=== PATIENT | male | born 1980 | race Caucasian/White ===

== ENCOUNTER 2023-08-03 03:54 | Emergency (ER) | payer MEDICAID, SELFPAY ==
[2023-08-03 04:00] VITALS: BP 161/88; PULSE 80; RESP 18; TEMP 36.3; O2SAT 97; BMI 25.0
--- NOTE | 2023-08-03 04:36 | ED.GENADULT ---
HPI - General Adult General Chief complaint: General Medical Stated complaint: nerve pain in mouth, can't eat Time Seen by Provider: 08/03/23 04:21 Source: patient and family Mode of arrival: ambulatory Limitations: no limitations History of Present Illness HPI narrative: 43 yo male with PMH of trigeminal neuralgia follows with a neurologist who will have episodes of pain without trigger. He has been in a typical pain flare for 2 days no recent infection/dental work or trauma. He takes his lamictal. He has had this before. He cannot eat or talk even at this time. MD complaint: trigeminal neuralgia flare Onset (ago): day(s) (2) Location: head and face Radiation: non-radiation Severity: severe Quality: stabbing Pain Consistency: intermittent Relieving factors: none Exacerbating factors: eating and movement Associated symptoms: loss of appetite, malaise and weakness Treatments prior to arrival: NSAID Related Data Previous Rx's Medication Instructions Recorded morphine 15 mg immediate release 15 mg PO Q6H PRN pain #14 tabs 08/03/23 tablet ondansetron 4 mg disintegrating 4 mg PO Q8H PRN nausea and 08/03/23 tablet vomiting #20 tabs Allergies Allergy/AdvReac Type Severity Reaction Status Date / Time No Known Allergies Allergy Unverified 08/06/20 16:18 Review of Systems Review of Systems: Constitutional : No Fever, No Chills, No Fatigue ENT/Mouth : No sore throat, No Rhinorrhea Eyes: pos Eye Pain, No Swelling, No Redness Cardiovascular : No Chest Pain, No SOB, No Dyspnea on Exertion Respiratory : No Cough, No Sputum Gastrointestinal : No Nausea, No Vomiting, No Diarrhea, No abdominal Pain Genitourinary : No Dysuria, No Urinary Frequency, No Hematuria, Musculoskeletal : No joint pain, No Myalgias, No Joint Swelling Skin : No Skin Lesions, No rash Neuro : No Weakness, No Numbness, No Dizziness, positive Headache, pos facial pain Psych : No Anxiety/Panic, No Depression All other systems reviewed and are negative [facility] Past Medical History Attestation statement: The following information was validated with the patient. Source: old records reviewed Medical History Trigeminal neuralgia Social History Social History (Updated 08/03/23 @ 04:36 by Rachael Ovidio, DO) Patient Tobacco Use Status: Never used Tobacco Advance Directives: No Advance Directives Information Provided: No Physical Exam ED Vital Signs: Vital Signs - 24 hr 08/03/23 04:00 08/03/23 06:22 Temperature 97.4 F 97.9 F Pulse Rate 80 72 Respiratory Rate 18 14 Blood Pressure 161/88 H 126/77 Pulse Oximetry 97 95 Oxygen Delivery Method Room Air Room Air BMI result Body Mass Index 25.0 Appearance: Alert. Oriented X3. No acute distress. Eyes: Pupils equal, round and reactive to light. ENT: Pharynx tight and clenched, appears in pain. Neck: Normal inspection. Neck supple. CVS: Normal heart rate and rhythm. Pulses normal. Respiratory: No respiratory distress. Breath sounds normal. Abdomen: Soft and non-tender. Skin: Skin warm and dry. Normal skin color. Normal skin turgor. Extremities: No lower extremity edema. No calf ttp Neuro: Oriented X 3. No motor deficit. No sensory deficit. Course Course Course Narrative: improved after IV morphine and dilaudid Reevaluation(s) Reevaluation #1: patient is drastically improved plan will be to give additional dose of medications and DC home - is able to move jaw and talk now prior to DC was having more pain and episode with spasms but then told RN after he was 01/27 we have decided to hold the last dose and he is okay with this. Medications Administered Discontinued Medications Generic Name Dose Route Start Last Admin Trade Name Freq PRN Reason Stop Dose Admin Hydromorphone HCl 1 mg 08/03/23 05:24 08/03/23 05:41 Hydromorphone Hcl 1 Mg/Ml Syringe IVPUSH 08/03/23 05:25 1 mg ONCE ONE Administration Protocol Sodium Chloride 1,000 mls @ 999 mls/hr 08/03/23 04:30 08/03/23 04:53 Ns IV 08/03/23 05:30 999 mls/hr .Q1H1M KATIUSKA Administration Lorazepam 1 mg 08/03/23 04:25 08/03/23 04:51 Lorazepam 2 Mg/Ml Vial IVPUSH 08/03/23 04:26 1 mg STAT STA Administration Morphine Sulfate 2 mg 08/03/23 04:25 08/03/23 04:51 Morphine Sulfate 2 Mg/Ml Cartridge IVPUSH 09/14/23 04:26 2 mg ONCE ONE Administration Protocol Medical Decision Making Medical Decision Making [facility] Narrative: 43 yo male with PMH of trigeminal neuralgia here with sharp pain on L side of face cannot eat or chew - no trauma or trigger hx of same in past. At this time typical bout for him. Will need pain control and basic labs and fluids - IV morphine and ativan ordered. Differential Diagnosis Differential Diagnoses: The differential diagnosis associated with the presentation includes neuropathic pain Admission/Observation Consideration of admission/observation: Escalation of care including admission/observation considered improved after IV pain medicatinos anticipate able to go home once pain improved Lab Data [facility] Lab Attestation statement: I reviewed the patient's lab results. 08/03/23 04:48 08/03/23 04:48 Labs: Lab Results 08/03/23 Range/Units 04:48 WBC 7.5 (4.8-10.8) X10*3/uL RBC 6.23 H (4.60-5.80) X10*6/uL Hgb 16.1 (14.0-18.0) g/dl Hct 50.2 (42.0-52.0) % MCV 80.6 (80.0-98.0) fL MCH 25.8 L (27.0-33.0) pg MCHC 32.1 (31.0-36.0) g/dl RDW 15.1 (11.0-16.0) % Plt Count 312 (160-400) X10*3/uL MPV 9.1 L (9.4-12.4) fL Immature Gran % (Auto) 0.1 (0.0-0.4) % Neut % (Auto) 60.8 (45-73) % Lymph % (Auto) 28.5 (20-40) % [place] % (Auto) 8.6 (2-11) % Eos % (Auto) 1.5 (0-4) % Baso % (Auto) 0.5 (0-2) % Lymph # (Auto) 2.1 (1.2-4.9) X10*3/uL [place] # (Auto) 0.6 (0.1-1.2) X10*3/uL Eos # (Auto) 0.1 (0.0-0.4) X10*3/uL Baso # (Auto) 0.0 (0.0-0.2) X10*3/uL Abs Immat Gran (auto) 0.01 (0.00-0.03) X10*3/uL Absolute Neuts (auto) 4.5 (2.0-8.3) x10*3/uL Absolute Nucleated RBC 0.000 (0.0-0.012) X10*3/uL Nucleated RBC % (auto) 0.0 (0.0-0.2) /100WBC Sodium 141 (135-145) mmol/L Potassium 4.1 (3.3-5.1) mmol/L Chloride 103 (96-108) mmol/L Carbon Dioxide 25 (22-29) mmol/L Anion Gap 17 (12-20) BUN 12 (9-16) mg/dL Creatinine 1.07 (0.5-1.4) mg/dL Estim Creat Clear Calc 102.4 Estimated GFR > 60 Random Glucose 93 (60-115) mg/dL Calcium 10.4 H (8.4-10.2) mg/dL Independent Historian Clinical information obtained from an independent historian. History obtained from or confirmed by: Spouse Tests considered The following testing was considered but not selected: CT head but given typical pain doubt ICH Prescription Management I considered prescription management with: Pain Medication Critical Care Time Critical Care Time Critical Care Time: Yes Total Critical Care Time: 31 Attestation: repeat IV pain morphine/dilaudid, improvement in pain. I attest to this time spent taking care of the patient Discharge Plan Discharge Clinical Impression: Trigeminal neuralgia of left side of face Patient Disposition: Home, Self-Care Instructions: Trigeminal Neuralgia (ED) Additional Instructions: increase fluid intake. return for worsening symptoms, fevers, confusion, vomiting, severe pain or any other concerns. continue your medications. Prescriptions: New ondansetron 4 mg tablet,disintegrating 4 mg PO Q8H PRN (Reason: nausea and vomiting) Qty: 20 0RF morphine 15 mg tablet 15 mg PO Q6H PRN (Reason: pain) Qty: 14 0RF Rx Instructions: partial fill okay; Partial Fill upon patient request. Stand Alone Forms: Work/School Release
[2023-08-03 04:51] LABS: MANUAL DIFF FLAG NO
[2023-08-03] MEDS: Morphine Sulfate 2 MG/ML CARTRIDGE IVPUSH (04:51)
[2023-08-03] MEDS: LORazepam 2 MG/ML VIAL 1 MG IVPUSH (04:51)
[2023-08-03 04:52] LABS: Basophils Percent Auto 0.5 % (0-2); Eosinophils Absolute Auto 0.1 X10*3/uL (0.0-0.4); Eosinophils Percent Auto 1.5 % (0-4); Hematocrit 50.2 % (42.0-52.0); Hemoglobin 16.1 g/dl (14.0-18.0); Imm Gran Abs Auto 0.01 X10*3/uL (0.00-0.03); Imm Gran Pct Auto 0.1 % (0.0-0.4); Lymphocytes Absolute Auto 2.1 X10*3/uL (1.2-4.9); Lymphocytes Percent Auto 28.5 % (20-40); Mean Corpuscular HGB Conc 32.1 g/dl (31.0-36.0); Mean Corpuscular Hemoglobin 25.8 pg (27.0-33.0); Mean Corpuscular Volume 80.6 fL (80.0-98.0); Mean Platelet Volume 9.1 fL (9.4-12.4); Monocytes Absolute Auto 0.6 X10*3/uL (0.1-1.2); Monocytes Percent Auto 8.6 % (2-11); Neutrophils Absolute Auto 4.5 x10*3/uL (2.0-8.3); Neutrophils Percent Auto 60.8 % (45-73); Platelet Count 312 X10*3/uL (160-400); Red Blood Count 6.23 X10*6/uL (4.60-5.80); Red Cell Distribution Width 15.1 % (11.0-16.0); White Blood Count 7.5 X10*3/uL (4.8-10.8)
[2023-08-03] MEDS: 0.9 % Sodium Chloride 1,000 ML 999 ML IV (04:53)
[2023-08-03 05:11] LABS: Anion Gap 17 (12-20); Blood Urea Nitrogen 12 mg/dL (9-16); Calcium 10.4 mg/dL (8.4-10.2); Carbon Dioxide 25 mmol/L (22-29); Chloride 103 mmol/L (96-108); Creatinine Clr Calc Pharmacy 102.4; Estimated Glomerular Filt Rate > 60; Glucose Random 93 mg/dL (60-115); Potassium 4.1 mmol/L (3.3-5.1); Sodium 141 mmol/L (135-145)
[2023-08-03] MEDS: HYDROmorphone HCl 1 MG/ML SYRINGE IVPUSH (05:41)
--- NOTE | 2023-08-03 06:18 | PC.NURSE ---
Pulled pain medication per order and gave to TATIANA Delarosa for administration.
[2023-08-03 06:22] VITALS: BP 126/77; PULSE 72; RESP 14; TEMP 36.6; O2SAT 95
--- NOTE | 2023-08-03 06:23 | PC.NURSE ---
Medication return by this charge nurse and RN [place], Provider aware.
== END 2023-08-03 06:41 | disposition home or self-care (01) ==
PROVIDERS: Emergency Provider Emergency Medicine
DX: G50.0 Trigeminal neuralgia (principal)
CPT/HCPCS: 36415; 80048; 85025; 96374; 96375; 99284; J1170; J2060; J2270

== ENCOUNTER 2024-11-08 09:14 | Emergency (ER) | payer MEDICAID, SELFPAY ==
[2024-11-08] VITALS (7 sets, daily range): BP systolic 129–148; BP diastolic 81–100; PULSE 70–78; RESP 15–20; TEMP 35.9–36.6; O2SAT 95–99; BMI 28.2
[2024-11-08 10:21] LABS: MANUAL DIFF FLAG NO
[2024-11-08 10:29] LABS: Basophils Percent Auto 0.6 % (0-2); Eosinophils Absolute Auto 0.1 X10*3/uL (0.0-0.4); Eosinophils Percent Auto 1.5 % (0-4); Hematocrit 46.5 % (42.0-52.0); Hemoglobin 15.2 g/dl (14.0-18.0); Imm Gran Abs Auto 0.02 X10*3/uL (0.00-0.03); Imm Gran Pct Auto 0.3 % (0.0-0.4); Lymphocytes Absolute Auto 2.2 X10*3/uL (1.2-4.9); Lymphocytes Percent Auto 33.7 % (20-40); Mean Corpuscular HGB Conc 32.7 g/dl (31.0-36.0); Mean Corpuscular Hemoglobin 26.2 pg (27.0-33.0); Mean Platelet Volume 9.3 fL (9.4-12.4); Monocytes Absolute Auto 0.5 X10*3/uL (0.1-1.2); Neutrophils Absolute Auto 3.8 x10*3/uL (2.0-8.3); Neutrophils Percent Auto 56.9 % (45-73); Platelet Count 299 X10*3/uL (160-400); Red Blood Count 5.81 X10*6/uL (4.60-5.80); Red Cell Distribution Width 14.5 % (11.0-16.0); White Blood Count 6.6 X10*3/uL (4.8-10.8)
[2024-11-08 10:39] LABS: Alanine Aminotransferase 43 U/L (0-40); Albumin Level 4.5 g/dL (3.5-5.0); Alkaline Phosphatase 112 U/L (39-117); Anion Gap 13 (12-20); Aspartate Amino Transferase 29 U/L (5-37); Bilirubin Total 0.6 mg/dL (0.0-1.0); Blood Urea Nitrogen 14 mg/dL (9-16); Calcium 9.7 mg/dL (8.4-10.2); Carbon Dioxide 25 mmol/L (22-29); Chloride 108 mmol/L (96-108); Creatinine Clr Calc Pharmacy 98.9; Estimated Glomerular Filt Rate > 60; Glucose Random 97 mg/dL (60-115); Potassium 3.9 mmol/L (3.3-5.1); Sodium 142 mmol/L (135-145); Total Protein 7.1 g/dL (6.5-8.0)
--- NOTE | 2024-11-08 10:49 | ED.GENADULT ---
HPI - General Adult General Chief complaint: General Medical Stated complaint: flare up Time Seen by Provider: 11/08/24 10:31 Source: patient Mode of arrival: ambulatory Limitations: no limitations Related Data Previous Rx's ?Medication ?Instructions ?Recorded morphine 15 mg immediate release 15 mg PO Q6H PRN pain #14 tabs 08/03/23 tablet ondansetron 4 mg disintegrating 4 mg PO Q8H PRN nausea and 08/03/23 tablet vomiting #20 tabs hydromorphone 2 mg tablet 2 mg PO Q6H PRN pain #10 tabs 11/08/24 (Dilaudid) Allergies Allergy/AdvReac Type Severity Reaction Status Date / Time No Known Allergies Allergy Verified 11/08/24 09:21 Review of Systems Review of Systems: Yes all other systems are reviewed and are negative PMFSH Past Medical History Attestation statement: The following information was validated with the patient. Source: old records reviewed and nursing notes reviewed Medical History Trigeminal neuralgia Social History Social History Patient Tobacco Use Status: Never used Tobacco Smoked in Last 30 Days: Yes Advance Directives: No Advance Directives Information Provided: Yes Physical Exam ED Vital Signs: Vital Signs - 24 hr 11/08/24 09:19 11/08/24 11:04 11/08/24 12:36 Temperature 96.7 F L Pulse Rate 70 Respiratory Rate 20 18 16 Blood Pressure 148/100 H Pulse Oximetry 99 Oxygen Delivery Method Room Air 11/08/24 12:37 11/08/24 13:58 Temperature 97.5 F Pulse Rate 72 Respiratory Rate 16 18 Blood Pressure 129/81 Pulse Oximetry 97 Oxygen Delivery Method Room Air BMI result Body Mass Index 28.2 vss Appearance: Alert.? Oriented X3.? No acute distress.? Head: Normocephalic, atraumatic, no step-offs or deformities Eyes: Pupils equal, round and reactive to light.? CVS: Normal heart rate and rhythm.? Pulses normal.? Respiratory: No respiratory distress.? Breath sounds normal.? Abdomen: Soft and nontender.? Skin: Skin warm and dry.? Normal skin color.? Normal skin turgor.? Extremities: No lower extremity edema.? No calf ttp. 5/5 strength to bilateral upper and lower extremities Neuro: Oriented X 3.? No motor deficit.? No sensory deficit. CN 2-12 intact Course Reevaluation(s) Reevaluation #1: CBC unremarkable. Chemistry no acute findings needing intervention. After multiple doses of morphine and Dilaudid patient is still having discomfort. I did repeat another dose of Dilaudid. He reports Valium usually works, ordered IV Valium will re-evaluate Time: 14:55 Reevaluation #2: Patient is still in excruciating pain I did order 2.5 of Valium initially will order another 2.5 at this time. Time: 15:39 Reevaluation #3: Patient is still not feeling better. Sign out to Al CABRAL pending symptomatic improvement. May require more opiates. Time: 16:08 Medications Administered Discontinued Medications Generic Name Dose Route Start Last Admin Trade Name Freq PRN Reason Stop Dose Admin Dexamethasone Sodium Phosphate 10 mg 11/08/24 11:01 11/08/24 11:06 Dexamethasone Sod Phosphate 10 Mg/Ml Vial IVPUSH 11/08/24 11:02 10 mg ONCE ONE Administration Diazepam 2.5 mg 11/08/24 14:12 11/08/24 14:26 Diazepam 10 Mg/2 Ml Cartridge IVPUSH 11/08/24 14:13 2.5 mg STAT STA Administration Diazepam 2.5 mg 11/08/24 15:39 11/08/24 15:57 Diazepam 10 Mg/2 Ml Cartridge IVPUSH 11/08/24 15:40 2.5 mg STAT STA Administration Hydromorphone HCl 1 mg 11/08/24 12:28 11/08/24 12:36 Hydromorphone Hcl 1 Mg/Ml Syringe IVPUSH 11/08/24 12:29 1 mg ONCE ONE Administration Protocol Hydromorphone HCl 1 mg 11/08/24 13:51 11/08/24 13:58 Hydromorphone Hcl 1 Mg/Ml Syringe IVPUSH 11/08/24 13:52 1 mg ONCE ONE Administration Protocol Lorazepam 1 mg 11/08/24 10:54 11/08/24 11:05 Lorazepam 2 Mg/Ml Vial IVPUSH 11/08/24 10:55 1 mg STAT STA Administration Morphine Sulfate 4 mg 11/08/24 10:54 11/08/24 11:04 Morphine Sulfate 4 Mg/Ml Cartridge IVPUSH 11/08/24 10:55 4 mg ONCE ONE Administration Protocol Naloxone HCl 8 mg 11/08/24 14:10 11/08/24 14:26 Naloxone Hcl Nasal Take Home 4 Mg [place] NOSTRILALT 11/08/24 14:11 8 mg ONCE ONE Administration Medical Decision Making Medical Decision Making [facility] Narrative: 1058 44 year old male PE- patient appears uncomfortable Hx and pe concerning for trigeminal neuralgia flare, Plan- Lab Data 11/08/24 10:17 11/08/24 10:17 Labs: Lab Results 11/08/24 Range/Units 10:17 WBC 6.6 (4.8-10.8) X10*3/uL RBC 5.81 H (4.60-5.80) X10*6/uL Hgb 15.2 (14.0-18.0) g/dl Hct 46.5 (42.0-52.0) % MCV 80.0 (80.0-98.0) fL MCH 26.2 L (27.0-33.0) pg MCHC 32.7 (31.0-36.0) g/dl RDW 14.5 (11.0-16.0) % Plt Count 299 (160-400) X10*3/uL MPV 9.3 L (9.4-12.4) fL Immature Gran % (Auto) 0.3 (0.0-0.4) % Neut % (Auto) 56.9 (45-73) % Lymph % (Auto) 33.7 (20-40) % [place] % (Auto) 7.0 (2-11) % Eos % (Auto) 1.5 (0-4) % Baso % (Auto) 0.6 (0-2) % Lymph # (Auto) 2.2 (1.2-4.9) X10*3/uL [place] # (Auto) 0.5 (0.1-1.2) X10*3/uL Eos # (Auto) 0.1 (0.0-0.4) X10*3/uL Baso # (Auto) 0.0 (0.0-0.2) X10*3/uL Abs Immat Gran (auto) 0.02 (0.00-0.03) X10*3/uL Absolute Neuts (auto) 3.8 (2.0-8.3) x10*3/uL Absolute Nucleated RBC 0.000 (0.0-0.012) X10*3/uL Nucleated RBC % (auto) 0.0 (0.0-0.2) /100WBC Sodium 142 (135-145) mmol/L Potassium 3.9 (3.3-5.1) mmol/L Chloride 108 (96-108) mmol/L Carbon Dioxide 25 (22-29) mmol/L Anion Gap 13 (12-20) BUN 14 (9-16) mg/dL Creatinine 1.19 (0.5-1.4) mg/dL Estim Creat Clear Calc 98.9 Estimated GFR > 60 Random Glucose 97 (60-115) mg/dL Calcium 9.7 D (8.4-10.2) mg/dL Total Bilirubin 0.6 (0.0-1.0) mg/dL AST 29 (5-37) U/L ALT 43 H (0-40) U/L Alkaline Phosphatase 112 (39-117) U/L Total Protein 7.1 (6.5-8.0) g/dL Albumin 4.5 (3.5-5.0) g/dL Critical Care Time Critical Care Time Critical Care Time: Yes Total Critical Care Time: 35 Attestation: I attest to this time spent taking care of the patient, obtaining history, physical, reviewing labs, imaging, treatment of patients condition +/- specialist/hospitalist consult Discharge Plan Discharge Clinical Impression: Trigeminal neuralgia Patient Disposition: Home, Self-Care Instructions: Trigeminal Neuralgia (ED), Paresthesia (ED) Additional Instructions: Take your medications as prescribed. If you were prescribed antibiotics today, it is important that you take your medication to their entirety, do not skip any doses, do not finish them early. Follow-up with your primary care provider this week. Return to the emergency department with new or worsening symptoms. Such as fevers, chills, chest pain, shortness of breath, nausea, vomiting, dizziness, headache, vision changes, lethargy In case of emergency call 911 A narcotic has been sent to your pharmacy please take this as prescribed. Do not take more than the prescribed dose. Narcotic medications can cause addiction. Please do not mix them with alcohol. Do not take them while driving or operating machinery. Do not take them with any other narcotics. Do not share them with friends or family. They can cause constipation. Take them only for severe pain. A narcotic was sent therefore I also gave you Narcan for home in case of an overdose. Please follow-up with your PCP. Prescriptions: New hydromorphone [Dilaudid] 2 mg tablet 2 mg PO Q6H PRN (Reason: pain) Qty: 10 0RF Rx Instructions: Partial Fill upon patient request. No Action ondansetron 4 mg tablet,disintegrating 4 mg PO Q8H PRN (Reason: nausea and vomiting) Qty: 20 0RF morphine 15 mg tablet 15 mg PO Q6H PRN (Reason: pain) Qty: 14 0RF Rx Instructions: partial fill okay; Partial Fill upon patient request. Referrals: [facility] [Primary Care Provider] - 2 days Print Language: Occitan
[2024-11-08] MEDS: Morphine Sulfate 4 MG/ML CARTRIDGE IVPUSH (11:04)
[2024-11-08] MEDS: LORazepam 2 MG/ML VIAL 1 MG IVPUSH (11:05)
[2024-11-08] MEDS: dexAMETHasone sod phosphate 10 MG/ML VIAL IVPUSH (11:06)
[2024-11-08] MEDS: HYDROmorphone HCl 1 MG/ML SYRINGE IVPUSH ×2 (12:36→13:58)
[2024-11-08] MEDS: diazePAM 10 MG/2 ML CARTRIDGE 2.5 MG IVPUSH ×2 (14:26→15:57)
[2024-11-08] MEDS: Naloxone HCl Nasal TAKE HOME 4 MG SPRAY 8 MG NOSTRILALT (14:26)
[2024-11-08] MEDS: 0.9 % Sodium Chloride 500 ML IV (16:33)
== END 2024-11-08 18:48 | disposition home or self-care (01) ==
PROVIDERS: Emergency Provider Emergency Medicine Emergency Medical Services
DX: G50.0 Trigeminal neuralgia (principal)
CPT/HCPCS: 36415; 80053; 85025; 96361; 96374; 96375; 96376; 99284; J1100; J1171; J2060; J2270; J3360

== ENCOUNTER 2025-01-19 05:29 | Emergency (ER) | payer MEDICAID, SELFPAY ==
[2025-01-19 05:34] VITALS: BP 144/87; PULSE 83; RESP 16; TEMP 37.1; O2SAT 98; BMI 27.0
--- NOTE | 2025-01-19 05:56 | ED_ITS ---
HPI - General Adult General Chief complaint: General Medical Stated complaint: pain left side of face Time Seen by Provider: 01/19/25 05:56 History of Present Illness ED Provider: Gisela NDIAYE narrative: The patient is a 44-year-old male with a history of trigeminal neuralgia. He says that he normally takes lamotrigine to manage this chronic syndrome. Since last night at around 01:00 he has had pain that he can not bear and came to the hospital. The pain is similar to previous episodes of exacerbation of this pain. No associated fever or other symptoms. Related Data Previous Rx's ?Medication ?Instructions ?Recorded morphine 15 mg immediate release 15 mg PO Q6H PRN pain #14 tabs 08/03/23 tablet ondansetron 4 mg disintegrating 4 mg PO Q8H PRN nausea and 08/03/23 tablet vomiting #20 tabs hydromorphone 2 mg tablet 2 mg PO Q6H PRN pain #10 tabs 11/08/24 (Dilaudid) Allergies Allergy/AdvReac Type Severity Reaction Status Date / Time No Known Allergies Allergy Verified 01/19/25 05:36 [facility] Past Medical History Medical History Trigeminal neuralgia Social History Social History Patient Tobacco Use Status: Never used Tobacco Smoked in Last 30 Days: No Advance Directives: No Do you have a plan to hurt others: No Plan Physical Exam ED Vital Signs: Vital Signs - 24 hr 01/19/25 05:34 01/19/25 06:02 01/19/25 09:06 Temperature 98.7 F 98 F 98 F Pulse Rate 83 78 78 Respiratory Rate 16 18 18 Blood Pressure 144/87 H 148/84 H 133/78 Pulse Oximetry 98 97 98 Oxygen Delivery Method Room Air 01/19/25 09:07 Temperature 98 F Pulse Rate 78 Respiratory Rate 18 Blood Pressure 133/78 Pulse Oximetry 98 Oxygen Delivery Method BMI result Body Mass Index 27.0 Const Other: the patient was sleepy but arousable. He did not seem in obvious distress. HENMT Other: Face is symmetrical. Mucous membranes moist. Eyes Other: Pupils are round equal, conjunctivae are clear Neck Neck: Yes full ROM Resp Effort & Inspection: normal respiratory effort Auscultation: clear to auscultation bilaterally Cardio Rate: regular rate Rhythm: regular rhythm Heart sounds: S1 normal heart sound present and S2 normal heart sound present Skin Other: skin is dry and unremarkable Neuro Other: the patient seems sleepy but arousable with a normal mental status. Cranial nerves are grossly intact. He moves his extremities symmetrically. Extrem Other: No peripheral edema Medications Administered Discontinued Medications Generic Name Dose Route Start Last Admin Trade Name Ricky PRN Reason Stop Dose Admin Dexamethasone Sodium Phosphate 8 mg 01/19/25 08:08 01/19/25 08:57 Dexamethasone Sod Phosphate 4 Mg/Ml Vial IVPUSH 01/19/25 08:09 8 mg ONCE ONE Administration Diphenhydramine HCl 50 mg 01/19/25 06:03 01/19/25 06:17 Diphenhydramine Hcl 50 Mg/Ml Vial IVPUSH 01/19/25 06:04 50 mg ONCE ONE Administration Acetaminophen 1,000 mg in 100 mls @ 400 mls/hr 01/19/25 06:03 01/19/25 06:43 Ofirmev IV 01/19/25 06:17 Infused ONCE ONE Infusion Sodium Chloride 1,000 mls @ 999 mls/hr 01/19/25 06:15 01/19/25 06:17 Ns IV 01/19/25 07:15 999 mls/hr .Q1H1M KATIUSKA Administration Ketorolac Tromethamine 10 mg 01/19/25 06:03 01/19/25 06:17 Ketorolac Tromethamine 15 Mg/Ml Vial IVPUSH 01/19/25 06:04 10 mg ONCE ONE Administration Prochlorperazine Edisylate 10 mg 01/19/25 06:03 01/19/25 06:17 Prochlorperazine Edisylate 10 Mg/2 Ml Vial IVPUSH 01/19/25 06:04 10 mg ONCE ONE Administration Medical Decision Making Medical Decision Making [facility] Narrative: The patient is a 44-year-old male who seems to have a long history of the painful syndrome related to trigeminal neuralgia. He is normally on lamotrigine because of this problem. He seems to have occasional flares of worsening pain. He was last seen here 2-1/2 months ago on November 08, 2024 with a an exacerbation of pain. Before that he has been seen here in July of 2023. The patient says that the pain he is experiencing today is similar to his previous exacerbations. The patient is hemodynamically stable and does not seem acutely ill otherwise. He was given IV ketorolac, IV acetaminophen, IV prochlorperazine, and IV diphenhydramine as well as IV fluids. He was observed. He had significant improvement in his pain. He was given 8 mg of IV dexamethasone as well. At that point he felt well enough for discharge. He is encouraged to follow up with his regular providers for ongoing management of this problem. Discharge Plan Discharge Clinical Impression: Left-sided trigeminal neuralgia Patient Disposition: Home, Self-Care Additional Instructions: Please continue your regular medications. Please plan on following up with your regular doctor and any specialists you have seen for this problem before. Return to the emergency room if significantly worse. Prescriptions: No Action hydromorphone [Dilaudid] 2 mg tablet 2 mg PO Q6H PRN (Reason: pain) Qty: 10 0RF Rx Instructions: Partial Fill upon patient request. ondansetron 4 mg tablet,disintegrating 4 mg PO Q8H PRN (Reason: nausea and vomiting) Qty: 20 0RF morphine 15 mg tablet 15 mg PO Q6H PRN (Reason: pain) Qty: 14 0RF Rx Instructions: partial fill okay; Partial Fill upon patient request. Referrals: [facility] [Provider Group] (trigeminal neuralgia) Interventions: ED Discharge Assessment Last Done: 01/19/25 09:07 Discharge Date/Time: 01/19/25 09:08 Print Language: Greek
[2025-01-19 06:02] VITALS: BP 148/84; PULSE 78; RESP 18; TEMP 36.6; O2SAT 97
[2025-01-19] MEDS: diphenhydrAMINE HCL 50 MG/ML VIAL IVPUSH (06:17)
[2025-01-19] MEDS: Ketorolac Tromethamine 15 MG/ML VIAL 10 MG IVPUSH (06:17)
[2025-01-19] MEDS: 0.9 % Sodium Chloride 1,000 ML 999 ML IV (06:17)
[2025-01-19] MEDS: Prochlorperazine Edisylate 10 MG/2 ML VIAL IVPUSH (06:17)
[2025-01-19] MEDS: Acetaminophen 1,000 MG/100 ML PIGGYBACK 400 MG IV (06:27)
[2025-01-19] MEDS: dexAMETHasone sod phosphate 4 MG/ML VIAL 8 MG IVPUSH (08:57)
[2025-01-19 09:06] VITALS: BP 133/78; PULSE 78; RESP 18; TEMP 36.6; O2SAT 98
[2025-01-19 09:07] VITALS: BP 133/78; PULSE 78; RESP 18; TEMP 36.6; O2SAT 98
== END 2025-01-19 09:08 | disposition home or self-care (01) ==
PROVIDERS: Emergency Provider Emergency Medicine
DX: G50.0 Trigeminal neuralgia (principal); R51.9 Headache, unspecified; Z79.899 Other long term (current) drug therapy
CPT/HCPCS: 96365; 96375; 99284; J0131; J0737; J1100; J1200; J1885

== ENCOUNTER 2025-01-21 21:28 | Emergency (ER) | payer MEDICAID, SELFPAY ==
[2025-01-21 21:38] VITALS: BP 155/88; PULSE 80; RESP 18; TEMP 36.8; O2SAT 98; BMI 25.7
--- OUTSIDE RECORDS SUMMARY | 2025-01-21 23:11 | XMS_ITS | Clinical Summary ---
Author Organization [employer] Address [address] [facility] 7t [place] [address] Care Team Providers Care Greens Tier Name Role Phone Whitney Hancock MD Primary Care Provider [phone] Allergies No known active allergies Medications lamoTRIgine (LaMICtal) 100 MG tablet TAKE 1 TABLET BY MOUTH IN THE MORNING, TAKE 1 TAB IN THE EVENING, 2 TABS IN THE EVENING 05/02/2023 Active amitriptyline (Elavil) 25 MG tablet Take 25 mg by mouth at bedtime. 07/19/2022 Active lamoTRIgine (LaMICtal) 200 MG tablet Take 1 tablet by mouth 3 times daily. 05/02/2023 Active naproxen (Naprosyn) 500 MG tablet TAKE 1 TABLET BY MOUTH TWICE A DAY WITH FOOD NEEDED 60 tablet 09/26/2023 Active oseltamivir (Tamiflu) 75 MG capsuleIndicati ons:Influenza A Infection Take 1 capsule (75 mg) by mouth 2 times daily for 5 days. 10 capsule 12/17/2024 12/22/19 25 Active Problems Problem Noted Date Diagnosed Date Influenza A 12/17/2024 Assessment & Plan (12/17/2024 3:23 PM EST): -girlfriend rapid influenza A positive -prescribed Tamiflu -droplet precautions discussed -supportive care discussed Chronic maxillary sinusitis 05/25/2023 Overview (05/25/2023): MRI 06/03/22 showed left severe maxillary sinusitis. Continued sx Never treated Assessment & Plan (07/31/2023 2:44 PM EDT): Completed antibiotic treatment ENT appt 08/16/23 F/u PRN Assessment & Plan (05/25/2023 10:49 PM EDT): Contacted ENT and scheduled appt Jul 2023 and added to cancellation list Will treat sinusitis from last year d/t continued sx and never receiving any treatment. Rx Augmentin BID x 7 days F/u 1-2 months with new PCP Obstructive sleep apnea syndrome 10/21/2021 Overview (05/25/2023): CPAP machine is not working. Sent for repairs but needs new Rx b/c insurance doesn't pain for repairs 05/01/2019 CONCLUSION: Successful treatment with application of CPAP and optimal results obtained with a pressure of 12 to 13 cm. The patient tolerated the treatment well. RECOMMENDATIONS: Nasal pillows of medium size pressure of 12 cm is recommended. Heated humidification could be used for the patient's comfort. Continue sleep hygiene education. Continue weight reduction program. Assessment & Plan (07/31/2023 2:57 PM EDT): Received DME Rx for CPAP with pressure 12-13cm will contact CPAP supplier next week if machine still has not been returned with upgraded settings F/u PRN with new PCP Assessment & Plan (05/25/2023 10:46 PM EDT): Will write new DME Rx for CPAP with pressure 12-13cm F/u PRN with new PCP Anxiety 09/22/2021 Gastroesophageal reflux disease 09/22/2021 Trigeminal neuralgia 01/26/2016 Overview (08/23/2023): Episodes comes and goes. Aggravated by weather, water intake, brushing teeth. Last episode 2 days ago, lasted 1/2 day. Usually duration 1/2 day-1 day. Last neurology appt 8 months ago 09/22/22. F/u 4-6 mo ago Neurosurgery 07/28/22, MRI 06/03/22 showed left severe maxillary sinusitis. Referred to ENT, missed appt. Reports assoc watery nasal discharge often, pain dental, Facial tenderness and foul smell in nose Denies Dizziness Treating Lamictal 100mg + 200mg tablets TID Not eating d/t facial pain Assessment & Plan (07/31/2023 2:58 PM EDT): Recommended proper dental care ENT scheduled 08/16/23, encouraged them to keep appt for f/u on sinusitis. Also b/c sinuses feel the same as they did in May, per the pt DTA form pending Continue Lamictal Rx by Neurology Will check with DME team on Boost drink Rx F/u PRN with new PCP Assessment & Plan (05/25/2023 10:43 PM EDT): Plan: Address if dental infection, [facility] Unable to eat d/t sensitivity of left side of mouth, tenderness r/t TN? Will Rx Boost drinks Contacted ENT and scheduled appt Jul 2023 and added to cancellation list Will treat sinusitis from last year d/t continued sx and never receiving any treatment. F/u 1-2 months with new PCP Encounters Date Type Department Care Team Description 12/17/2024 3:40 PM EST Office Visit [facility] [address] [place] [phone] Lyndsey Fong MD Influenza A (Primary Dx) 11/15/2024 Telephone [facility] [address] [place], [place] [phone] Whitney Hancock MD Nurse Triage 11/08/2024 Orders Only GENERIC EXTERNAL DATA DEPARTMENT Provider, Generic External Data from Last 3 Months Immunizations Name Administration Dates Next Due Hep A, Adult 06/05/2015 Influenza Injectable Quadriv alant Preservative Free IIV4 MDCK 09/01/2017 Td (adult), 5 Lf tetanus tox oid, preservative free, adsorbed 12/15/2013 Tdap 02/02/2022 Social History Tobacco Use Types Packs/Day Years Used Date Smoking Tobacco: Unknown Tobacco Cessation:Counseling Given: Not Answered Sex and Gender Information Value Date Recorded Sex Assigned at Male 09/19/2022 10:29 AM EDT Legal Sex Male 10:29 AM EDT Gender Identity Male 09/19/2022 10:29 AM EDT Sexual Orientation Straight 09/19/2022 10 :29 AM EDT Last Filed Vital Signs Vital Sign Reading Time Taken Comments Blood Pressure 121/88 12/17/2024 3:30 PM EST Pulse 100 12/17/2024 3:30 PM EST Temperature 36.3 ??C (97.3 ??F) 12/17/2024 3:30 PM ES T Respiratory Rate 20 12/17/2024 3:30 PM EST Oxygen Saturation 98% 12/17/2024 3:30 PM EST Inhaled Oxygen Concentration - - Weight 95.4 kg (210 lb 6.4 oz) 12/17/2024 3:30 P M EST Height 188 cm (6' 2 ) 12/17/2024 3:30 PM EST Body Mass Index 27.01 12/17/2024 3:30 PM EST Plan of Treatment Health Maintenance Due Date Last Done Comments CT Colonography 1979 Colonoscopy 1979 Colorectal Cancer Screening 1979 Depression Screening 1979 FIT DNA/Cologuard 1979 FIT 1979 FOBT 1979 SDOH Screening 1979 Sigmoidoscopy 1979 Alcohol/Substance Use Screening 1991 Family Planning (PISQ) 1994 Hepatitis B Vaccines (1 of 3 - 19+ 3-dose series) 1998 COVID-19 Vaccine (2023-2 5 season) 2024 04/05/2021, 03/11/2021 Influenza Vaccine (#1) 2024 09/01/2017 Tobacco Screening 07/31/2024 07/31/2023 Lipid Panel 02/02/2027 02/02/2022 Zoster Vaccines (1 of 2) 2029 DTaP/Tdap/Td Vaccines (2 - T d or Tdap) 02/03/2032 02/02/2022, 12/15/2013 RSV Patients and Patients Aged 60 years or older (1 - 1-dose 75+ series) 2054 Hepatitis A Vaccines Aged Out 06/05/2015 No long er eligible based on patient's age to complete this topic HIV Screening Completed 02/02/2022 Hepatitis C Screening Completed 02/02/2022 HIB Vaccines Aged Out No longer eligi ble based on patient's age to complete this topic HPV Vaccines Aged Out No longer eligi ble based on patient's age to complete this topic IPV Vaccines Aged Out No longer eligi ble based on patient's age to complete this topic Meningococcal Vaccine Aged Out No neel gokul eligible based on patient's age to complete this topic Pneumococcal Vaccine: Pediatrics (0 to 5 Years) and At-Risk Patients (6 to 49) Years) Aged Out No longer eligible b ased on patient's age to complete this topic RSV under 20 months Aged Out No longe r eligible based on patient's age to complete this topic Rotavirus Vaccines Aged Out No longer eligible based on patient's age to complete this topic Procedures Procedure Name Priority Date/Time Associated Diagnosis Comments POCT INFLUENZA B (ID NOW RAPID MOLECULAR) Routine 12/17/2024 3:40 PM EST Influenza A POCT INFLUENZA A (ID NOW RAPID MOLECULAR) Routine 12/17/2024 3:40 PM EST Influenza A POCT RAPID COVID ANTIGEN Routine 12/17/2024 3:34 PM EST Influenza A COMPREHENSIVE METABOLIC PANEL Routine 11/08/2024 10:17 AM EST CBC WITH AUTO DIFFERENTIAL Routine 11/08/2024 10:17 AM EST ZZZ HISTORICAL HEPATITIS C AB W/REFL TO HCV RNA, QN, PCR Routine 02/02/2022 11:23 AM EDT HIV 1/2 ANTIGEN/ANTIBODY, FOURTH GENERATION W/RFL Routine 02/02/2022 11:23 AM EDT LIPID PANEL, STANDARD Routine 02/02/2022 11:23 AM EDT from Last 3 Months or Most Recently Relevant to Health Maintenance Results * POCT Rapid Influenza B BONE ID NOW (12/17/2024 3:40 PM EST) Influenza B Negative Negative, Indeterminate [facility] Swab 12/17/2024 3:40 PM EST Lyndsey Fong MD POINT OF CARE TEST ENTER/E DIT ORDERABLES Final Result Performing Organization Address City/[facility]/ZIP Co de Phone Number [facility] [address] [place] [address] [phone] * (ABNORMAL) POCT Rapid Influenza A BONE ID NOW (12/17/2024 3:40 PM EST) Pathologist [facility] Influenza A Positive( A) Negative, Indeterminate [facility] Swab 12/17/2024 3:40 PM EST Lyndsey Fong MD POINT OF CARE TEST ENTER/E DIT ORDERABLES Final Result Performing Organization Address [facility] Co de Phone Number [facility] [address] [place] [address] [phone] * POCT Rapid Covid-19 BinaxNOW (12/17/2024 3:34 PM EST) [facility] Rapid COVID Ag Negative QC Media Lot # [id number] Lot# Expiration Date [id number] Swab 12/17/2024 3:34 PM EST Lyndsey Fong MD POINT OF CARE TEST ENTER/E DIT ORDERABLES Final Result * (ABNORMAL) CBC auto differential (11/08/2024 10:17 AM EST) [facility] White Blood Count 6.6 4.8 - 10.8 X10*3/uL [facility] Red Blood Count 5.81(H) 4.60 - 5.80 X10*6/uL [facility] Hemoglobin 15.2 14.0 - 18.0 g/dl [facility] Hematocrit 46.5 42.0 - 52.0 % [facility] Mean Corpuscular Volume 80.0 80.0 - 98.0 fL [facility] Mean Corpuscular Hemoglobin 26.2(L) 27.0 - 33.0 pg [facility] Mean Corpuscular HGB Conc 32.7 31.0 - 36.0 g/dl [facility] Red Cell Distribution Width 14.5 11.0 - 16.0 % [facility] Platelet Count 299 160 - 400 X10*3/uL [facility] Mean Platelet Volume 9.3(L) 9.4 - 12.4 fL [facility] Neutrophils Percent Auto 56.9 45 - 73 % [facility] Imm Gran Pct Auto 0.3 0.0 - 0.4 % [facility] Lymphocytes Percent Auto 33.7 20 - 40 % [facility] Monocytes Percent Auto 7.0 2 - 11 % [facility] Eosinophils Percent Auto 1.5 0 - 4 % [facility] Basophils Percent Auto 0.6 0 - 2 % [facility] NRBC Pct Auto 0.0 0.0 - 0.2 /100WBC [facility] Neutrophils Absolute Auto 3.8 2.0 - 8.3 x10*3/uL [facility] Imm Gran Abs Auto 0.02 0.00 - 0.03 X10*3/uL [facility] Lymphocytes Absolute Auto 2.2 1.2 - 4.9 X10*3/uL [facility] Monocytes Absolute Auto 0.5 0.1 - 1.2 X10*3/uL [facility] Eosinophils Absolute Auto 0.1 0.0 - 0.4 X10*3/uL [facility] Basophils Absolute Auto 0.0 0.0 - 0.2 X10*3/uL [facility] NRBC Abs Auto 0.000 0.0 - 0.012 X10*3/uL [facility] 11/08/2024 10:1 7 AM EST 11/08/2024 10:20 AM EST us Generic External Data Provider LAB BLOOD ORDERAB LES Final Result [facility] [address] [place] [phone] * (ABNORMAL) Comprehensive Metabolic Panel (11/08/2024 10:17 AM EST) Sodium 142 135 - 145 mmol/L [facility] Potassium 3.9 3.3 - 5.1 mmol/L [facility] Chloride 108 96 - 108 mmol/L [facility] Carbon Dioxide 25 22 - 29 mmol/L [facility] Anion Gap 13 12 - 20 [facility] Urea Nitrogen (BUN) 14 9 - 16 mg/dL [facility] Creatinine, Serum 1.19 0.5 - 1.4 mg/dL [facility] Creatinine Clr Calc Pharmacy 98.9 [facility] Comment:eGFR (calculated fro m the MDRD study equation) and eCrCl(calculated from the Cockcroft-Gault equation) are based ondifferent parameters and may not yield comparable results.If eCrCl result is absurd, please check patient'sheight/weight. Estimated Glomerular Filt Rate >60 [facility] Comment:Chronic Kidney Disea se: Estimated GFR < 60 mL/min/1.44v0Vukmpq Kidney Disease: Estimated GFR < 15 mL/min/1.73m2 Glucose 97 60 - 115 mg/dL [facility] Calcium 9.7 8.4 - 10.2 mg/dL [facility] Bilirubin, Total 0.6 0.0 - 1.0 mg/dL [facility] Aspartate Amino Transferase 29 5 - 37 U/L [facility] Alanine Aminotransferase 43(H) 0 - 40 U/L [facility] Total Protein 7.1 6.5 - 8.0 g/dL [facility] Albumin Level 4.5 3.5 - 5.0 g/dL [facility] Alkaline Phosphatase 112 39 - 117 U/L [facility] 11/08/2024 10:1 7 AM EST 11/08/2024 10:20 AM EST us Generic External Data Provider LAB BLOOD ORDERAB LES Final Result [facility] [address] [place] [address] [phone] * HEPATITIS C AB W/REFL TO HCV RNA, QN, PCR (02/02/2022 11:23 AM EDT) HEPATITIS C ANTIBODY NON-REACT DENVER NON-REACT DENVER [facility] INDEX 0.01 <1.00 [facility] Comment: ?? HCV antibody was non-reactive. There is no laboratory ?? evidence of HCV infection. ?? In most cases, no further action is required. However, if recent HCV exposure is suspected, a test for HCV RNA (test code 06464) is suggested. ?? For additional information please refer to http://Comfyware.SafetyTat/faq/VGO72f9 (This link is being provided for informational/ educational purposes only.) ?? 02/02/2022 11:2 3 AM EDT Lisette Perez NP HISTORICAL/NON ORDERABLE LABS F inal Result [facility] [address] * HIV 1/2 ANTIGEN/ANTIBODY,FOURTH GENERATION W/RFL (02/02/2022 11:23 AM EDT) HIV-1/2 ANTIGEN AND ANTIBODIES, 4TH GENERATION W/ REFLEX NON-REACT DENVER NON-REACT DENVER [facility] Comment: HIV-1 antigen and HIV-1/HIV-2 antibodies were not detected. There is no laboratory evidence of HIV infection. ?? PLEASE NOTE: This information has been disclosed to you from records whose confidentiality may be protected by state law. ??If your state requires such protection, then the state law prohibits you from making any further disclosure of the information without the specific written consent of the person to whom it pertains, or as otherwise permitted by law. A general authorization for the release of medical or other information is NOT sufficient for this purpose. ? For additional information please refer to http://Comfyware.SafetyTat/faq/AGK478 (This link is being provided for informational/ educational purposes only.) ? The performance of this assay has not been clinically validated in patients less than 2 years old. ?? 02/02/2022 11:2 3 AM EDT Lisette Perez NP LAB BLOOD ORDERABLES Final Resu lt Performing Organization Address City/[facility]/ZIP Co de Phone Number [facility] [address] [place] [address], * (ABNORMAL) LIPID PANEL, STANDARD (02/02/2022 11:23 AM EDT) Chol/HDLC Ratio 3.9 <5.0 (calc) [facility] Cholesterol, Total 172 <200 mg/dL [facility] HDL Cholesterol 44 > OR = 40 mg/dL [facility] LDL Cholesterol 101(H) mg/dL (calc) [facility] Comment: Reference range: <100 ?? Desirable range <100 mg/dL for primary prevention; ?? <70 mg/dL for patients with CHD or diabetic patients ?? with > or = 2 CHD risk factors. ?? LDL-C is now calculated using the Frank-Clarisa ?? calculation, which is a validated novel method providing ?? better accuracy than the Friedewald equation in the ?? estimation of LDL-C. ?? Frank SS et al. SONY. 2013;310(19): 7656-4710 ?? (http://education.MiddleGate/faq/DEQ476) Non-HDL Cholesterol 128 <130 mg/dL (calc) [facility] Comment: For patients with diabetes plus 1 major ASCVD risk ?? factor, treating to a non-HDL-C goal of <100 mg/dL ?? (LDL-C of <70 mg/dL) is considered a therapeutic ?? option. Triglycerides 172(H) <150 mg/dL [facility] 02/02/2022 11:2 3 AM EDT Lisette Perez NP LAB BLOOD ORDERABLES Final Resu lt Performing Organization Address [facility]/ZIP Co de Phone Number [facility] [address] [place] [address], from Last 3 Months or Most Recently Relevant to Health Maintenance Insurance [facility] C3 HSN FULL Care Teams Greens Tier Relationship Specialty Start Date End Date Whitney Hancock MD [address] [place] [phone] PCP - General Family Medicine 08/29/23
== END 2025-01-21 23:16 | disposition left against medical advice (07) ==
LOC: HO.ED 23:08
PROVIDERS: Emergency Provider Emergency Medicine
DX: R51.9 Headache, unspecified (principal)
CPT/HCPCS: 99281

== ENCOUNTER 2025-02-18 06:15 | Emergency (ER) | payer MEDICAID, SELFPAY ==
[2025-02-18 06:16] VITALS: BP 146/96; PULSE 65; RESP 16; TEMP 35.7; O2SAT 98; BMI 27.0
--- OUTSIDE RECORDS SUMMARY | 2025-02-18 06:31 | XMS_ITS | Clinical Summary ---
Author Organization [employer] Address [address] [facility] 7t [place] [address] Care Team Providers Care Ocean Lifeguard Name Role Phone Whitney Hancock MD Primary Care Provider [phone] Allergies No known active allergies Medications lamoTRIgine [...] WITH FOOD NEEDED 60 tablet 09/26/2023 Active Active Problems Problem Noted Date Diagnosed Date [...] Address if dental infection, appt 05/31/23 at [facility] Unable to eat d/t sensitivity of left side of mouth, tenderness r/t TN? Will Rx Boost drinks Contacted ENT and scheduled appt Jul 2023 and added to cancellation list Will treat sinusitis from last year d/t continued sx and never receiving any treatment. F/u 1-2 months with new PCP Encounters Date Type Department Care Team Description 02/13/2025 Telephone [facility] [address] [place] [phone] Whitney Hancock MD Nurse Triage 01/31/2025 Population Health Risk Score Community [facility] (C[facility]) Department [address] [phone] Provider, Population Health Generic 12/17/2024 3:40 PM EST Office Visit [facility] [address] [place], [place] [phone] Lyndsey Fong MD Influenza A (Primary Dx) from Last 3 Months Immunizations Name Administration [...] Routine 12/17/2024 3:34 PM EST Influenza A ZZZ HISTORICAL HEPATITIS C AB W/REFL TO [...] PM EST) Influenza B Negative Negative, Indeterminate [facility] Swab 12/17/2024 3:40 PM EST us Lyndsey Fong MD POINT OF CARE TEST ENTER/E DIT ORDERABLES Final Result [facility] [address] [place] [phone] * (ABNORMAL) POCT Rapid Influenza A BONE ID NOW (12/17/2024 3:40 PM EST) Influenza A Positive( A) Negative, Indeterminate [facility] Swab 12/17/2024 3:40 PM EST Lyndsey Fong MD POINT OF CARE TEST ENTER/E DIT ORDERABLES Final Result Performing Organization Address City/[facility]/ZIP Co de Phone Number [facility] [address] [place] [address] [phone] * POCT Rapid Covid-19 BinaxNOW (12/17/2024 3:34 PM EST) Pathologist [facility] Rapid COVID Ag Negative QC Media Lot # [id number] Lot# Expiration Date [id number] Swab 12/17/2024 3:34 PM EST Lyndsey oFng MD POINT OF CARE TEST ENTER/E DIT ORDERABLES Final Result * HEPATITIS C AB W/REFL TO HCV RNA, QN, PCR (02/02/2022 11:23 AM EDT) HEPATITIS C ANTIBODY NON-REACT DENVER NON-REACT DENVER [facility] INDEX 0.01 <1.00 [facility] Comment: ?? HCV antibody was non-reactive. There is no laboratory ?? evidence of HCV infection. ?? In most cases, no further action is required. However, if recent HCV exposure is suspected, a test for HCV RNA (test code 51117) is suggested. ?? For additional information please refer to http://education.Tyfone.SoftGenetics/faq/QLH60q5 (This link is being provided for informational/ educational purposes only.) ?? 02/02/2022 11:2 3 AM EDT Lisette Perez NP HISTORICAL/NON ORDERABLE LABS F inal Result [facility] [address] * HIV 1/2 ANTIGEN/ANTIBODY,FOURTH GENERATION W/RFL (02/02/2022 11:23 AM EDT) [facility] HIV-1/2 ANTIGEN AND ANTIBODIES, 4TH GENERATION W/ REFLEX NON-REACT DENVER NON-REACT DENVER [facility] Comment: HIV-1 antigen and HIV-1/HIV-2 [...] ? For additional information please refer to http://Amphora Medical.iZoca/faq/GYM414 (This link is being provided for informational/ educational purposes only.) ? The performance of this assay has not been clinically validated in patients less than 2 years old. ?? 02/02/2022 11:2 3 AM EDT Lisette Perez NP LAB BLOOD ORDERABLES Final Resu lt [facility] [address] [place] [address], * (ABNORMAL) LIPID PANEL, STANDARD (02/02/2022 11:23 AM EDT) [facility] Chol/HDLC Ratio 3.9 <5.0 (calc) [facility] ?? LDL-C is now calculated using the Frank-Mckenna ?? calculation, which is a validated novel method providing ?? better accuracy than the Friedewald equation in the ?? estimation of LDL-C. ?? Frank SS et al. SONY. 2013;310(19): 8020-5377 ?? (http://Amphora Medical.FamilyLeaf/faq/ILK537) Non-HDL Cholesterol 128 <130 mg/dL (calc) [facility] Comment: For patients with diabetes plus 1 major ASCVD risk ?? factor, treating to a non-HDL-C goal of <100 mg/dL ?? (LDL-C of <70 mg/dL) is considered a therapeutic ?? option. Triglycerides 172(H) <150 mg/dL [facility] 02/02/2022 11:2 3 AM EDT us Lisette Perez [employer] LAB BLOOD ORDERABLES Final Resu lt [facility] [address] from Last 3 Months or Most Recently Relevant to Health Maintenance Insurance [employer] FULL Care Teams Ocean Lifeguard Relationship Specialty Start Date End Date Whitney Hancock MD [address] [place] [phone] PCP - General Family Medicine 08/29/23
--- OUTSIDE RECORDS SUMMARY | 2025-02-18 06:31 | XMS_ITS | Encounter Summary ---
Author Organization [employer] Address [address] [facility] 7t [place] [address] Care Team Providers Care Budget Clerk Name Role Phone Suzy Zheng BOBBIN DUMPER Primary Care Provider [phone] Whitney Hancock MD Primary Care Provider [phone] Reason for Visit * Reason Onset Date Comments Durable Medical Equipment 01/26/2023 Encounter Details Date Type Department Care Team (Late st Contact Info) Description 01/26/2023 Telephone [facility] MEDICINE [address] [place] [address] Suzy Zheng BOBBIN DUMPER [address] [place] [address] [place] [address] Durable Medical Equipment Social History Tobacco Use Types Packs/Day Years Used Date Smoking Tobacco: Never Assessed Sex and Gender Information Value Date Recorded Sex Assigned at Male 09/19/2022 10:29 AM EDT Legal Sex Male 10:29 AM EDT Gender Identity Male 09/19/2022 10:29 AM EDT Sexual Orientation Straight 09/19/2022 10 :29 AM EDT documented as of this encounter Miscellaneous Notes * Telephone Encounter - Arielle Keenan - 01/26/2023 1:20 PM EST TC to [facility] regarding message below. A ticket was put in place for [facility] to bring patient CPAPin and checked out. TC to [facility] and provided [facility] number to contact and schedule a day and time. [facility] understood and agreed with plan. * Telephone Encounter - Raza Frazier - 01/26/2023 10:52 AM EST Tc from [facility] requesting a new script for a CPAP machine. [facility] states current CPAP machine is currently broken. Please contact [facility] at [phone] documented in this encounter Plan of Treatment Not on file documented as of this encounter Visit Diagnoses Not on filedocumented in this encounter Care Teams Budget Clerk Relationship Specialty Start Date End Date Suzy Zheng FNP PCP - General Family Medicine 05/25/22 08/28/23 Whitney Hancock MD [address] [place] [phone] PCP - General Family Medicine 08/29/23 documented as of this encounter
--- OUTSIDE RECORDS SUMMARY | 2025-02-18 06:31 | XMS_ITS | Clinical Summary ---
Author Organization [facility] Address [address] [place] [address] Phone Care Team Providers Care Dish Room Worker Name Role Phone Physician, No Pcp Primary Care Provider Unavaila ble Allergies No known active allergies Medications oxyCODONE (OXY-IR) 5 mg immediate release capsule Take 1 capsule (5 mg total) by mouth every 6 (six) hours if needed for severe pain for up to 6 doses. Max Daily Amount: 20 mg 6 capsule 5 Active oxyCODONE (OXY-IR) 5 mg immediate release capsule Take 1 capsule (5 mg total) by mouth every 4 (four) hours if needed for severe pain. Max Daily Amount: 30 mg 6 capsule 5 025 Discontinued ibuprofen (ADVIL,MOTRIN) 800 mg tablet Take 1 tablet (800 mg total) by mouth every 6 (six) hours if needed for moderate pain for up to 5 days. Take 1 tablet by mouth every 6-8 hours as needed for pain. 20 tablet 5 025 Discontinued ibuprofen (ADVIL,MOTRIN) 800 mg tablet Take 1 tablet (800 mg total) by mouth every 6 (six) hours if needed for mild pain or moderate pain for up to 5 days. Take 1 tablet by mouth every 6-8 hours as needed for pain. 20 tablet 5 025 Encounters Date Type Department Care Team Description 01/22/2025 12:02 AM EST - 01/22/2025 2:59 AM EST Emergency [facility] [address] [place] [address] Trigeminal neuralgia of left side of face (Primary Dx) Discharge Disposition: Home or Self Care from Last 3 Months Social History Tobacco Use Types Packs/Day Years Used Date Smoking Tobacco: Never Smokeless Tobacco: Never Tobacco Cessation:Counseling Given: Not Answered Sex and Gender Information Value Date Recorded Sex Assigned at Male 01/22/2025 12:50 AM EST Legal Sex Male 4:57 AM EST Gender Identity Male 01/22/2025 12:50 AM EST Sexual Orientation Choose not to disclose 2024 12:50 AM EST Obstetrics History Last Filed Vital Signs Vital Sign Reading Time Taken Comments Blood Pressure 143/89 01/22/2025 2:02 AM EST Pulse 70 01/22/2025 2:02 AM EST Temperature 37 ??C (98.6 ??F) 01/21/2025 10:10 PM EST Respiratory Rate 16 01/22/2025 2:02 AM EST Oxygen Saturation 98% 01/21/2025 10:10 PM EST Inhaled Oxygen Concentration - - Weight 90.7 kg (200 lb) 01/21/2025 10:10 PM EST Height 188 cm (6' 2 ) 01/21/2025 10:10 PM EST Body Mass Index 25.68 01/21/2025 10:10 PM EST Plan of Treatment Health Maintenance Due Date Last Done Comments Hepatitis B Vaccines (1 of 3 - 19+ 3-dose series) 1998 Colorectal Cancer Screening: Colonoscopy 10/23/2022 Depression Screening 10/23/2022 Hepatitis C Screening 10/23/2022 Social Influencers of Health Screening 10/23/2022 COVID-19 Vaccine (3 - 2023-2 5 season) 2024 04/05/2021, 03/11/2021 Influenza Vaccine (#1) 2024 09/01/2017 Cholesterol Screening (Lipid Panel) 02/02/2027 02/02/2022 DTaP,Tdap,and Td Vaccines (3 - Td or Tdap) 02/03/2032 02/02/2022, 12/15/2013 Hepatitis A Vaccines Aged Out 06/05/2015 No long er eligible based on patient's age to complete this topic HIV Screening Completed 02/02/2022 HIB Vaccines Aged Out No longer eligi ble based on patient's age to complete this topic HPV Vaccines Aged Out No longer eligi ble based on patient's age to complete this topic IPV Vaccines Aged Out No longer eligi ble based on patient's age to complete this topic MMR Vaccines Aged Out No longer eligi ble based on patient's age to complete this topic Meningococcal ACWY Vaccine Aged Out N o longer eligible based on patient's age to complete this topic Meningococcal B Vacine Aged Out No lo nger eligible based on patient's age to complete this topic Pneumococcal Vaccine: Pediatrics (0 to 5 Years) and At-Risk Patients (6 to 64 Years) Aged Out No longer eligible b ased on patient's age to complete this topic RSV Immunization Patients Under 20 months Aged Out No longer eligible b ased on patient's age to complete this topic Varicella Vaccines Aged Out No longer eligible based on patient's age to complete this topic Insurance MEDICAID - [place] Care Teams Dish Room Worker Relationship Specialty Start Date End Date Physician, No Pcp PCP - General 01/22/25
--- OUTSIDE RECORDS SUMMARY | 2025-02-18 06:31 | XMS_ITS | Encounter Summary ---
Author Organization [facility] Address [address] [place] [address] Care Team Providers Care Front Office Developer Name Role Phone Whitney Hancock MD Primary Care Provider [phone] Reason for Visit * Reason Onset Date Comments Nurse Triage 02/13/2025 Encounter Details Date Type Department Care Team (Late st Contact Info) Description 02/13/2025 Telephone [facility] MEDICINE [address], [place] [phone] Whitney Hancock MD [address], [place] [phone] Nurse Triage Social History Tobacco Use Types Packs/Day Years Used Date Smoking Tobacco: Unknown Sex and Gender Information Value Date Recorded Sex Assigned at Male 09/19/2022 10:29 AM EDT Legal Sex Male 10:29 AM EDT Gender Identity Male 09/19/2022 10:29 AM EDT Sexual Orientation Straight 09/19/2022 10 :29 AM EDT documented as of this encounter Miscellaneous Notes * Telephone Encounter - Kayleigh Wisdom RN - 02/13/2025 1:51 PM EDT called pt to triage, spoke to girlfriend with pt. states pt having about 2 months duration of depression symptoms and would like to be seen. pt having difficulty sleeping, difficulty eating, isolating, and lack of motivation. girlfriend states pt lost his job recently due to pain related to his Trigeminal Neuralgia which he is finding difficulty to deal with. pt not currently taking any medication for depression and takes Lamotrigine for the Trigeminal Neuralgia. advised no available appt either with PCP or other team provider this week and advised walk in center before 3:00 so he could see as needed. girlfriend denies SI or specific self harm but states pt drinking more alcohol than usual. given location, hours, and wait times cautions. advised home care: rest, fluids, allow pt to vent, and seek ER evaluation if severe symptoms. girlfriend understands and agrees with plan. insurancenot verified and girlfriend states they are working on his insurance and it should be active by tomorrow. Protocol Used: Depression (Adult) Protocol-Based Disposition: See in Office or Video Visit within 3 Days Video visit offer not recorded Positive Triage Question: * Patient wants to be seen * All higher-acuity triage questions were negative Care Advice Discussed: * Note to Triager - Depression * Depression - Symptoms * Depression - Causes * Depression - Tips for Healthy Living * Depression - Stay Active * Reasons To Call Back - Sadness or depression symptoms persist over 2 weeks - You want to talk with a counselor - You feel like harming yourself - You become worse * Telephone Encounter - Shelly Moore - 02/13/2025 1:20 PM EDT Tc from [facility]. Symptom: Depression Outcome: Schedule an urgent appointment (within 4 hours) or talk to a nurse or provider soon Reason: Started within the past 3 days (4 months ago) The caller accepted this outcome. [phone] (pt) documented in this encounter Plan of Treatment Not on file documented as of this encounter Visit Diagnoses Not on filedocumented in this encounter Care Teams Front Office Developer Relationship Specialty Start Date End Date Whitney Hancock MD [address] [place] [phone] PCP - General Family Medicine 08/29/23 documented as of this encounter
--- NOTE | 2025-02-18 08:04 | ED.GENADULT ---
HPI - General Adult General Chief complaint: Dental/Oral Stated complaint: mouth pain Time Seen by Provider: 02/18/25 07:42 Source: patient Mode of arrival: ambulatory Limitations: no limitations History of Present Illness ED Provider: DR. Rolon HPI narrative: 44-year-old male with history of trigeminal neuralgia use lamotrigine at home which is not working for the past few days, patient have flare up of severe left facial shooting pain typical to his trigeminal neuralgia pain. No fever, no chills. No dental issue, no photophobia. Related Data Previous Rx's ?Medication ?Instructions ?Recorded morphine 15 mg immediate release 15 mg PO Q6H PRN pain #14 tabs 08/03/23 tablet ondansetron 4 mg disintegrating 4 mg PO Q8H PRN nausea and 08/03/23 tablet vomiting #20 tabs hydromorphone 2 mg tablet 2 mg PO Q6H PRN pain #10 tabs 11/08/24 (Dilaudid) oxycodone 5 mg tablet 5 mg PO BID PRN pain #7 tabs 02/18/25 Allergies Allergy/AdvReac Type Severity Reaction Status Date / Time No Known Allergies Allergy Verified 02/18/25 06:19 Review of Systems Review of Systems: all other systems are reviewed and are negative Constitutional: Reports as per HPI and Reports no additional constitutional complaints Eyes: Reports as per HPI and Reports no additional eye complaints Reports system reviewed and no additional complaints, except as documented Cardiovascular: Reports as per HPI and Reports no additional cardiovascular complaints Respiratory: Reports as per HPI and Reports no additional respiratory complaints Gastrointestinal: Reports as per HPI and Reports no additional gastrointestinal complaints Genitourinary: Reports no additional female genitourinary complaints Musculoskeletal: Reports no additional musculoskeletal complaints Skin/Breast: Reports system reviewed and no additional complaints, except as docu Psychiatric: Reports no additional psychiatric complaints Endocrine: Reports no additional endocrine complaints Hematologic/Lymphatic: Reports no additional hematologic/lymphatic complaints Allergic/Immunologic: Reports no additional allergic/immunologic complaints Reports system reviewed and no additional complaints, except as documented and Reports Abnormal speech present [facility] Past Medical History Medical History Trigeminal neuralgia Social History Social History Patient Tobacco Use Status: Never used Tobacco Advance Directives: No Advance Directives Information Provided: Yes Do you have a plan to hurt others: No Plan Physical Exam ED Vital Signs: Vital Signs - 24 hr 02/18/25 06:16 02/18/25 08:07 02/18/25 08:09 Temperature 96.2 F L 98.4 F Pulse Rate 65 71 Respiratory Rate 16 18 Blood Pressure 146/96 H 146/100 H Pulse Oximetry 98 100 Oxygen Delivery Method Room Air Room Air BMI result Body Mass Index 27.0 Vital signs have been reviewed and appear to be correct. Blood pressure elevated. Heart rate normal. Respiratory rate normal. Temperature normal. Oxygen saturation normal. Appearance: Alert. Oriented X3. No acute distress. Head: Normal external exam. Normocephalic. Atraumatic. No Akins signs noted. No raccoon eyes noted. Face: No swelling, no bilateral asymmetry, no dental tenderness or abscess. No sinus tenderness on percussion. Eyes: PERRLA. EOMI. Conjunctiva and sclera normal. Eyelids normal. ENT: TM's Normal. Pharynx normal. Uvula midline. Moist mucous membranes. No trismus noted. No drooling noted. No muffled voice noted. Neck: Normal inspection. Neck supple. FROM. No adenopathy. Thyroid Normal. No meningeal signs. No neck mass noted. CVS: Normal heart rate and rhythm. Heart sound normal. No murmurs noted. Pulses normal throughout. Respiratory: No respiratory distress. Painless inspiration. Breath sounds normal. No wheezes/rales/rhonchi noted. Chest nontender. No accessory muscle usage noted or decreased air movement noted. Abdomen: Soft and nontender. Bowel sounds normal in all 4 quadrants. No distention noted. No organomegaly noted. No visible injury noted. Back: No CVA tenderness. Full range of motion noted. Skin: Skin warm and dry. Normal skin color. Normal skin turgor. No rashes/lesions/lacerations noted. Extremities: No lower extremity edema. Extremities exhibit normal range of motion. Extremities nontender. Neuro: Oriented X 3. Cranial nerve exam: II-XII are grossly intact No motor deficit. No sensory deficit. Reflexes normal. Course Reevaluation(s) Reevaluation #1: Left facial trigeminal neuralgia and pain patient feels better after a pain medication. Time: 10:00 Medical Decision Making Differential Diagnosis Differential Diagnoses: The differential diagnosis associated with the presentation includes ( Dental infection, sinusitis, left trigeminal neuralgia.) Admission/Observation Consideration of admission/observation: Escalation of care including admission/observation considered Discharge Plan Discharge Clinical Impression: Left-sided trigeminal neuralgia Patient Disposition: Still a Patient Instructions: Trigeminal Neuralgia (ED) Prescriptions: New oxycodone 5 mg tablet 5 mg PO BID PRN (Reason: pain) Qty: 7 0RF Rx Instructions: Partial Fill upon patient request. No Action hydromorphone [Dilaudid] 2 mg tablet 2 mg PO Q6H PRN (Reason: pain) Qty: 10 0RF Rx Instructions: Partial Fill upon patient request. ondansetron 4 mg tablet,disintegrating 4 mg PO Q8H PRN (Reason: nausea and vomiting) Qty: 20 0RF morphine 15 mg tablet 15 mg PO Q6H PRN (Reason: pain) Qty: 14 0RF Rx Instructions: partial fill okay; Partial Fill upon patient request. Referrals: [facility] [Primary Care Provider] - Print Language: Burmese
[2025-02-18 08:07] VITALS: BP 146/100; PULSE 71; RESP 18; O2SAT 100
[2025-02-18 08:09] VITALS: TEMP 36.9
[2025-02-18] MEDS: Ketorolac Tromethamine 15 MG/ML VIAL IM (09:15)
[2025-02-18] MEDS: lamoTRIgine 100 MG TABLET 200 MG PO (09:15)
[2025-02-18] MEDS: HYDROmorphone HCl 1 MG/ML SYRINGE IM (09:18)
[2025-02-18 09:55] VITALS: BP 146/96; PULSE 66; RESP 18; TEMP 36.8; O2SAT 100
[2025-02-18] MEDS: Ondansetron ODT 4 MG TAB.RAPDIS TRANSLINGU (09:58)
[2025-02-18 10:02] VITALS: BP 146/96; PULSE 66; RESP 18; TEMP 36.8; O2SAT 100
== END 2025-02-18 10:33 | disposition still patient (30) ==
PROVIDERS: Emergency Provider Emergency Medicine
DX: G50.0 Trigeminal neuralgia (principal); G50.1 Atypical facial pain; Z79.899 Other long term (current) drug therapy
CPT/HCPCS: 96372; 99283; 99284; J1171; J1885

== ENCOUNTER 2025-08-06 13:22 | Emergency (ER) | payer MEDICAID, SELFPAY ==
--- NOTE | ~2025-08-06 | CT_ITS ---
EXAMINATION: CT ABDOMEN AND PELVIS WITHOUT CONTRAST CLINICAL INFORMATION: Left-sided renal colic. COMPARISON: None available. TECHNIQUE: Multidetector volumetric imaging was performed from the superior aspect of the liver through the pubic symphysis. Sagittal and coronal reformatted images were obtained on the technologist's workstation. This CT examination was performed using dose optimization techniques as appropriate, variously including the following: *Automated exposure control *Adjustment of mA and/or kV according to patient size (this includes techniques or standardized protocols for targeted exams where dose is matched to indication/reason for exam; i.e. extremities or head) *Use of iterative reconstruction technique FINDINGS: LUNG BASES: Bases are clear bilaterally. Heart size is normal. GE junction is normal. There are no effusions. LIVER, GALLBLADDER, AND BILIARY TREE: The liver is normal in size, shape, and diffusely decreased in attenuation consistent with mild fatty infiltration. No focal hepatic lesion or biliary ductal dilatation is present. The gallbladder is unremarkable with no evidence of radiopaque gallstones, gallbladder wall thickening, or obvious pericholecystic inflammatory changes. PANCREAS: Normal. SPLEEN: Normal. ADRENAL GLANDS: Normal. KIDNEYS AND URETERS: There is a moderate left hydronephrosis and left hydroureter. There is a 2 mm obstructing calculus at the left ureterovesicular junction. Left kidney is otherwise normal. No mass or additional calculi. The right kidney is normal. No calculi, mass, or hydronephrosis evident. BLADDER: Underdistended but grossly normal. GASTROINTESTINAL TRACT: The small and large bowel are unremarkable. The appendix is unremarkable. ABDOMINAL WALL: No significant hernia is appreciated. LYMPH NODES: No abnormal lymphadenopathy present. VASCULAR: Normal. PELVIC VISCERA: Normal prostate and seminal vesicles. OSSEOUS STRUCTURES: No suspicious lytic or blastic bone lesions. Mild degenerative arthritis in the bilateral SI joints and hip joints. CT/CT abdomen pelvis wo IV con IMPRESSION: 1. Moderate left hydronephrosis and hydroureter secondary to a 2 mm obstructing calculus at the left ureterovesical junction. 2. No additional urological calculus evident. Kidneys otherwise image normally. 3. Mild diffuse fatty infiltration of the liver. Electronically signed by: Ousmane Epperson MD 08/06/2025 04:47 PM EDT
--- NOTE | ~2025-08-06 | XR_ITS ---
EXAMINATION: XR LUMBOSACRAL SPINE CLINICAL INFORMATION: back pain COMPARISON: None available. TECHNIQUE: Three views of the lumbosacral spine. FINDINGS: There are 5 nonrib-bearing lumbar vertebra. Vertebral body height and alignment is preserved. Disc spaces are preserved. There are small osteophytes involving anterior L4 and anterior superior L5. XR/XR lumbar spine 2-3V IMPRESSION: Unremarkable lumbar spine aside from minimal degenerative change at L4 and L5. Electronically signed by: Duran Leiva MD 08/06/2025 02:09 PM EDT RP
[2025-08-06 13:25] VITALS: BP 126/78; PULSE 85; RESP 18; TEMP 37; O2SAT 96; BMI 25.0
--- NOTE | 2025-08-06 13:31 | ED_ITS ---
HPI - General Adult General Chief complaint: Back Pain/Injury Stated complaint: side/back pain Time Seen by Provider: 08/06/25 14:51 Source: patient Mode of arrival: ambulatory Limitations: no limitations History of Present Illness ED Provider: HPI narrative: 45-year-old male presenting with significant left-sided flank pain since yesterday, no injury, no dysuria olayinka hematuria. No numbness in the groin or weakness in the lower extremities. Does not report history of kidney stones Related Data Previous Rx's ?Medication ?Instructions ?Recorded morphine 15 mg immediate release 15 mg PO Q6H PRN pain #14 tabs 08/03/23 tablet ondansetron 4 mg disintegrating 4 mg PO Q8H PRN nausea and 08/03/23 tablet vomiting #20 tabs hydromorphone 2 mg tablet 2 mg PO Q6H PRN pain #10 tab s 11/08/24 (Dilaudid) oxycodone 5 mg tablet 5 mg PO BID PRN pain #7 tabs 02/18/25 ketorolac 10 mg tablet 10 mg PO Q6H PRN pain #20 ta bs 08/06/25 ondansetron 4 mg disintegrating 4 mg PO Q8H PRN nausea and 08/06/25 tablet vomiting #8 tabs prednisone 20 mg tablet 20 mg PO DAILY #4 tabs 08/06 tamsulosin 0.4 mg capsule (Flomax) 0.4 mg PO BEDTIME # 5 caps 08/06/25 Allergies Allergy/AdvReac Type Severity Reaction Status Date / Time No Known Allergies Allergy Verified 08/06/25 13:27 Review of Systems 2 Constitutional: Constitutional: Reports as per [facility] Past Medical History Medical History Trigeminal neuralgia Social History Social History Patient Tobacco Use Status: Never used Tobacco Smoked in Last 30 Days: No Use of substances other than those prescribed or required for medical reasons: No Advance Directives: No Advance Directives Information Provided: Yes Physical Exam ED Vital Signs: Vital Signs - 24 hr 08/06/25 13:25 08/06/25 15:02 08/06/25 17:28 Temperature 98.6 F 98.4 F 98.6 F Pulse Rate 85 74 73 Respiratory Rate 18 16 15 Blood Pressure 126/78 123/84 138/87 Pulse Oximetry 96 99 97 Oxygen Delivery Method Room Air Room Air Room Air 08/06/25 19:06 Temperature 98.6 F Pulse Rate 73 Respiratory Rate 15 Blood Pressure 138/87 Pulse Oximetry 97 Oxygen Delivery Method Room Air BMI result Body Mass Index 25.0 Const Other: * Gen: ?In obvious discomfort * HEENT: PERRLA, EOMI, MMM, * Neck: Supple, no LAD * CV: RRR, no obvious murmurs appreciated * Resp: ?No wheezing rales rhonchi no stridor moving air well * Abd: ?Bowel sounds are present, no tenderness no rebound no rigidity, exam deferred, positive CVA tenderness on the left * MSK: FROM, strength 5/5 all extremities * Skin: Warm, dry, intact, * Neuro: ?Alert and oriented x3, moving upper and lower extremities symmetrically, no obvious facial asymmetry noted Course Course Course Narrative: [age] year male presents to ED for left lower back flank pain since last night. Patient denies any nausea vomiting abdominal pain, dysuria, hematuria, or any other trauma. Labs UA ordered. Reevaluation(s) Reevaluation #1: My interpretation is in agreement with radiology's impression that there is a mild left hydronephrosis with 2 mm stone at the UVJ. Patient while eating and drinking and appearing comfortable states that he is in 9/10 pain, gave additional 15 mg of IV Toradol as well as 1 g of IV Tylenol. Patient will be discharged home with medications for continued passage of the stone and given a referral for Urology. He otherwise appears well/nontoxic and is hemodynamically stable. Time: 18:40 Medications Administered Discontinued Medications Generic Name Dose Route Start Last Admin Trade Name Freq PRN Reason Stop Dose Admin Sodium Chloride 1,000 mls @ 999 mls/hr 08/06/25 15:00 08/06/25 16:49 Ns IV 08/06/25 16:00 Infused .Q1H1M KATIUSKA Infusion Sodium Chloride 1,000 mls @ 999 mls/hr 08/06/25 17:00 08/06/25 18:48 Ns IV 08/06/25 18:00 Infused .Q1H1M KATIUSKA Infusion Acetaminophen 1,000 mg in 100 mls @ 400 mls/hr 08/06/25 17:00 08/06/25 17:53 Ofirmev IV 08/06/25 17:14 Infused ONCE ONE Infusion Iohexol 85 ml 08/06/25 16:29 08/06/25 16:29 Iohexol 350 Mg/Ml 100 Ml Infus..Btl IV 08/06/25 16:30 85 ml ONCE ONE Administration Ketorolac Tromethamine 15 mg 08/06/25 14:53 08/06/25 15:14 Ketorolac Tromethamine 15 Mg/Ml Vial IVPUSH 08/06/25 14:54 15 mg ONCE ONE Administration Ketorolac Tromethamine 15 mg 08/06/25 17:00 08/06/25 17:21 Ketorolac Tromethamine 30 Mg/Ml Vial IVPUSH 08/06/25 17:01 15 mg ONCE ONE Administration Morphine Sulfate 4 mg 08/06/25 14:53 08/06/25 15:14 Morphine Sulfate 4 Mg/Ml Cartridge IVPUSH 08/06/25 14:54 4 mg ONCE ONE Administration Protocol Medical Decision Making Medical Decision Making MDM Narrative: 3:02 PM 08/06/2025 (Dr. Bertram Hsieh): Presenting with significant left- sided discomfort flank, started since yesterday, blood work reassuring without any evidence for ASHLYN, urinalysis with blood no UTI, this is either renal colic or musculoskeletal pain however he has in significant amount of pain some leaning towards renal colic and he has never his history of that in the past so we will obtain further imaging, he did have an x-ray that did not reveal any destructive lesions or fractures. Differential Diagnosis Differential Diagnoses: The differential diagnosis associated with the presentation includes (, renal colic, Diskitis, osteomyelitis, spinal epidural abscess, cauda equina, musculoskeletal pain) Lab Data [facility] Lab Attestation statement: I reviewed the patient's lab results. 08/06/25 14:28 08/06/25 14:28 Labs: Lab Results 08/06/25 Range/Units 14:28 WBC 6.4 (4.8-10.8) X10*3/uL RBC 5.55 (4.60-5.80) X10*6/uL Hgb 14.9 (14.0-18.0) g/dl Hct 45.3 (42.0-52.0) % MCV 81.6 (80.0-98.0) fL MCH 26.8 L (27.0-33.0) pg MCHC 32.9 (31.0-36.0) g/dl RDW 14.5 (11.0-16.0) % Plt Count 317 (160-400) X10*3/uL MPV 9.3 L (9.4-12.4) fL Immature Gran % (Auto) 0.2 (0.0-0.4) % Neut % (Auto) 59.2 (45-73) % Lymph % (Auto) 29.7 (20-40) % [place] % (Auto) 7.3 (2-11) % Eos % (Auto) 2.8 (0-4) % Baso % (Auto) 0.8 (0-2) % Lymph # (Auto) 1.9 (1.2-4.9) X10*3/uL [place] # (Auto) 0.5 (0.1-1.2) X10*3/uL Eos # (Auto) 0.2 (0.0-0.4) X10*3/uL Baso # (Auto) 0.1 (0.0-0.2) X10*3/uL Abs Immat Gran (auto) 0.01 (0.00-0.03) X10*3/uL Absolute Neuts (auto) 3.8 (2.0-8.3) x10*3/uL Absolute Nucleated RBC 0.000 (0.0-0.012) X10*3/uL Nucleated RBC % (auto) 0.0 (0.0-0.2) /100WBC Sodium 146 H (135-145) mmol/L Potassium 4.0 (3.3-5.1) mmol/L Chloride 110 H (96-108) mmol/L Carbon Dioxide 27 (22-29) mmol/L Anion Gap 13 (12-20) BUN 9 (9-16) mg/dL Creatinine 1.09 (0.5-1.4) mg/dL Estim Creat Clear Calc 98.4 Estimated GFR > 60 Random Glucose 86 (60-115) mg/dL Calcium 9.4 (8.4-10.2) mg/dL Total Bilirubin 0.7 (0.0-1.0) mg/dL AST 28 (5-37) U/L ALT 40 (0-40) U/L Alkaline Phosphatase 118 H (39-117) U/L Total Protein 7.5 (6.5-8.0) g/dL Albumin 5.1 H (3.5-5.0) g/dL Urine Color Yellow Urine Appearance Clear Urine pH 5.5 (5.0-9.0) Ur Specific [place] 1.025 (1.005-1.025) Urine Protein Trace (Neg-Trace) mg/dL Urine Glucose (UA) Negative (Negative) mg/dL Urine Ketones Trace (Negative) mg/dL Urine Blood Small (1+) H (Negative) Urine Nitrite Negative (Negative) Ur Leukocyte Esterase Negative (Negative) Urine RBC 6-10 H (0-2) /HPF Urine WBC 0-5 (0-5) /HPF Ur Squamous Epith Cells 0-2 (0-2) /HPF Urine Bacteria None Seen (None Seen) Hyaline Casts 0-2 (0-2) /LPF Independent Interpretation I performed an independent interpretation of an: Plain X-Ray (Good joint spaces, no obvious fractures, loss of lumbar lordosis) Radiology Impression Discussion of test interpretation with radiology: I have reviewed the radiologist's reading. Radiologist Impression: Unremarkable lumbar spine aside from minimal degenerative change at L4 and L5. Prescription Management I considered prescription management with: Pain Medication Critical Care Time Critical Care Time Total Critical Care Time: 32 Attestation: Time is exclusive of separately billable procedures. Time includes: direct patient care, patient reassessment, coordination of patient care, interpretation of data (laboratory data, pulse oximetry, arterial blood gases and chest xrays), review of patient's medical records, medical consultation and documentation of patient care. Procedures excluded from critical care time: central intravenous line placement and electrocardiography. Discharge Plan Discharge Clinical Impression: Renal colic, Hydronephrosis, Ureterolithiasis Patient Disposition: Home, Self-Care Instructions: Renal Colic (ED), Low Oxalate Diet (ED), Hydronephrosis (ED), Ureteral Stones (ED) Additional Instructions: 4 prescriptions have been sent to your pharmacy, please take them as prescribed. Tylenol 1000 mg, orally, every 6 hours as needed for pain control. Do not exceed 4000 mg within 24 hours. A referral has been provided to you below for follow-up with Urology. Continue to drink plenty of fluids and do not hesitate to return to the emergency room for any acute worsening of symptoms. Prescriptions: New ondansetron 4 mg tablet,disintegrating 4 mg PO Q8H PRN (Reason: nausea and vomiting) Qty: 8 0RF prednisone 20 mg tablet 20 mg PO DAILY Qty: 4 0RF ketorolac 10 mg tablet 10 mg PO Q6H PRN (Reason: pain) Qty: 20 0RF Rx Instructions: maximum total duration of 5 days from all oral, intranasal, or parenteral formulations tamsulosin [Flomax] 0.4 mg capsule 0.4 mg PO BEDTIME Qty: 5 0RF No Action hydromorphone [Dilaudid] 2 mg tablet 2 mg PO Q6H PRN (Reason: pain) Qty: 10 0RF Rx Instructions: Partial Fill upon patient request. ondansetron 4 mg tablet,disintegrating 4 mg PO Q8H PRN (Reason: nausea and vomiting) Qty: 20 0RF morphine 15 mg tablet 15 mg PO Q6H PRN (Reason: pain) Qty: 14 0RF Rx Instructions: partial fill okay; Partial Fill upon patient request. oxycodone 5 mg tablet 5 mg PO BID PRN (Reason: pain) Qty: 7 0RF Rx Instructions: Partial Fill upon patient request. Referrals: Oumou Alva MD [Physician, Urology] Center,[facility] [Primary Care Provider, Medical] Interventions: ED Discharge Assessment Last Done: 08/06/25 19:06 Discharge Date/Time: 08/06/25 19:06 Print Language: Dominican
[2025-08-06 14:35] LABS: Hematocrit 45.3 % (42.0-52.0); Hemoglobin 14.9 g/dl (14.0-18.0); Imm Gran Abs Auto 0.01 X10*3/uL (0.00-0.03); Imm Gran Pct Auto 0.2 % (0.0-0.4); Lymphocytes Absolute Auto 1.9 X10*3/uL (1.2-4.9); MANUAL DIFF FLAG NO; Mean Corpuscular HGB Conc 32.9 g/dl (31.0-36.0); Mean Corpuscular Hemoglobin 26.8 pg (27.0-33.0); Mean Corpuscular Volume 81.6 fL (80.0-98.0); NRBC Abs Auto 0.000 X10*3/uL (0.0-0.012); NRBC Pct Auto 0.0 /100WBC (0.0-0.2); Platelet Count 317 X10*3/uL (160-400); Red Blood Count 5.55 X10*6/uL (4.60-5.80); White Blood Count 6.4 X10*3/uL (4.8-10.8)
[2025-08-06 14:37] LABS: Appearance Urine Clear; Glucose Urine UA Negative (Negative); PH 5.5 (5.0-9.0); Specific Gravity - Urine 1.025 (1.005-1.025); UMIC TRIGGER UACC YES
[2025-08-06 14:50] LABS: Alanine Aminotransferase 40 U/L (0-40); Albumin Level 5.1 g/dL (3.5-5.0); Alkaline Phosphatase 118 U/L (39-117); Anion Gap 13 (12-20); Aspartate Amino Transferase 28 U/L (5-37); Blood Urea Nitrogen 9 mg/dL (9-16); Calcium 9.4 mg/dL (8.4-10.2); Carbon Dioxide 27 mmol/L (22-29); Chloride 110 mmol/L (96-108); Creatinine Clr Calc Pharmacy 98.4; Estimated Glomerular Filt Rate > 60; Potassium 4.0 mmol/L (3.3-5.1); Sodium 146 mmol/L (135-145); Total Protein 7.5 g/dL (6.5-8.0)
[2025-08-06 15:02] VITALS: BP 123/84; PULSE 74; RESP 16; TEMP 36.9; O2SAT 99
[2025-08-06] MEDS: iohexoL 350 MG/ML 100 ML INFUS..BTL 85 ML IV (16:29)
[2025-08-06 17:28] VITALS: BP 138/87; PULSE 73; RESP 15; TEMP 37; O2SAT 97
--- OUTSIDE RECORDS SUMMARY | 2025-08-06 18:19 | XMS_ITS | Encounter Summary ---
Author Organization [employer] Address [address] [place] [address] Care Team Providers Care Silverware Buffer Name Role Phone Suzy ZhengP Primary Care Provider Whitney Green MD Primary Care Provider [phone] Reason for Visit * Reason Onset Date Comments Durable Medical Equipment 01/26/2023 Encounter Details Date Type Department Care Team (Late st Contact Info) Description 01/26/2023 Telephone [facility] [address] [place] [address] Suzy Zheng, METAL CUT OFF SAW OPERATOR Durable Medical Equipment Social History Tobacco Use [...] is currently broken. Please contact rabia at [phone] documented in this encounter Plan of Treatment Not on file documented as of this encounter Visit Diagnoses Not on filedocumented in this encounter Care Teams Silverware Buffer Relationship Specialty Start Date End Date Suzy Zheng FNP PCP - General Family Medicine 05/25/22 08/28/23 Whitney Hancock MD [address] [place] [id number] PCP - General Family Medicine 08/29/23 documented as of this encounter
--- OUTSIDE RECORDS SUMMARY | 2025-08-06 18:19 | XMS_ITS | Clinical Summary ---
Author Organization [employer] Address [address] [facility] [address] [place] [address] Care Team Providers Care Manager Printing Name Role Phone Whitney Hancock MD Primary Care Provider [phone] Allergies No known active allergies Medications * This document contains information received from the source organization and may not represent a complete record from that organization. ibuprofen 800 MG tabletIndication s:Trigeminal neuralgia Take 1 tablet (800 mg) by mouth every 8 (eight) hours if needed for mild pain or moderate pain. 90 tablet 3 5 Active lamoTRIgine (LaMICtal) 100 MG tabletIndication s:Trigeminal neuralgia Take 1 tablet (100 mg) by mouth 2 times daily. 180 tablet 3 5 Active lamoTRIgine (LaMICtal) 200 MG tabletIndication s:Trigeminal neuralgia Take 1 tablet (200 mg) by mouth 3 times daily. 270 tablet 3 5 Active omeprazole OTC (PriLOSEC OTC) 20 MG EC tabletIndication s:Gastroesophage al reflux disease without esophagitis Take 1 tablet (20 mg) by mouth before breakfast. Do not crush, chew, or split. 90 tablet 3 5 03/19/20 26 Active oxyCODONE (Roxicodone) 5 MG immediate release tabletIndication s:Trigeminal neuralgia Take 1 tablet (5 mg) by mouth every 12 (twelve) hours if needed for severe pain for up to 7 days. 14 tablet 5 07/21/20 25 Active Problems Problem Noted Date Diagnosed Date Mild depression 03/21/2025 Chronic maxillary sinusitis 05/25/2023 Overview (05/25/2023): MRI [...] if dental infection, appt 05/31/23 at [facility] Unable to eat d/t sensitivity of left side of mouth, tenderness r/t TN? Will Rx Boost drinks Contacted ENT and scheduled appt Jul 2023 and added to cancellation list Will treat sinusitis from last year d/t continued sx and never receiving any treatment. F/u 1-2 months with new PCP Resolved Problems Problem Noted Date Diagnosed Date Resolved Date Severe depression 03/17/2025 03/21/2025 Influenza A 12/17/2024 03/17/2025 Assessment & Plan (12/17/2024 3:23 PM EST): -girlfriend rapid influenza A positive -prescribed Tamiflu -droplet precautions discussed -supportive care discussed Encounters * This document contains information received from the source organization and may not represent a complete record from that organization. Date Type Department Care Team Description 08/06/2025 Orders Only [facility] External Provider, [facility] 07/14/2025 Refill [facility] [address] [place], [place] [phone] Whitney Hancock MD Trigeminal neuralgia (Primary Dx) 05/26/2025 Refill [facility] [address], [place] [phone] Whitney Hancock MD Trigeminal neuralgia from Last 3 Months Immunizations Immunization Administration Dates Next Due Hep A, Adult 06/05/2015 Influenza Injectable Quadriv alant Preservative Free IIV4 MDCK 09/01/2017 Td (adult), 5 Lf tetanus tox oid, preservative free, adsorbed 12/15/2013 Tdap 02/02/2022 Social History Tobacco Use Types Packs/Day Years Used Date Smoking Tobacco: Unknown Tobacco Cessation:Counseling Given: Not Answered Depression Answer Date Recorded Patient Health Questionnaire-9 Score 9 03/17/2025 Patient Health Questionnaire-9 Score 9 03/17/2025 Last PHQ-9: Questionnaire Data Not on file 0 03/17/2025 Depression Answer Date Recorded Patient Health Questionnaire-2 Score 4 03/17/2025 Sex and Gender Information Value Date Recorded Sex Assigned at Male 09/19/2022 10:29 AM EDT Legal Sex Male 10:29 AM EDT Gender Identity Male 09/19/2022 10:29 AM EDT Sexual Orientation Straight 09/19/2022 10 :29 AM EDT Last Filed Vital Signs Vital Sign Reading Time Taken Comments Blood Pressure 124/80 03/17/2025 3:43 PM EDT Pulse 102 03/17/2025 3:43 PM EDT Temperature 36.8 C (98.2 F) 03/17/2025 3:43 PM EDT Respiratory Rate 17 03/17/2025 3:43 PM EDT Oxygen Saturation 96% 03/17/2025 3:43 PM EDT Inhaled Oxygen Concentration - - Weight 91.3 kg (201 lb 3.2 oz) 03/17/2025 3:43 P M EDT Height 188 cm (6' 2 ) 12/17/2024 3:30 PM EST Body Mass Index 25.83 12/17/2024 3:30 PM EST Plan of Treatment Health Maintenance Due Date Last Done Comments CT Colonography 1979 Colonoscopy 1979 Colorectal Cancer Screening 1979 FIT DNA/Cologuard 1979 FIT 1979 FOBT 1979 SDOH Screening 1979 Sigmoidoscopy 1979 Disability Screening 1979 Alcohol/Substance Use Screening 1991 Family Planning (PISQ) 1994 Hepatitis B Vaccines (1 of 3 - 19+ 3-dose series) 1998 COVID-19 Vaccine (3 - 2024-2 6 season) 2025 04/05/2021, 03/11/2021 Influenza Vaccine (#1) 2025 09/01/2017 Depression Monitoring 09/16/2025 03/17/2025 , 03/17/2025 Tobacco Screening 03/17/2026 03/17/2025 Lipid Panel 02/02/2027 02/02/2022 Zoster Vaccines (1 [...] age to complete this topic Meningococcal B Vaccine Aged Out No l onger eligible based on patient's age to complete this topic Meningococcal Vaccine Aged Out No neel gokul eligible based on patient's age to complete this topic Pneumococcal Vaccine: Pediatrics (0 to 5 Years) and At-Risk Patients (6 to 49) Years Aged Out No longer eligible b ased on patient's age to complete this topic RSV under 20 months Aged Out No longe r eligible based on patient's age to complete this topic Rotavirus Vaccines Aged Out No longer eligible based on patient's age to complete this topic Procedures Procedure Name Priority Date/Time Associated Diagnosis Comments CT ABDOMEN PELVIS WO CONTRAST Routine 08/06/2025 4:16 PM EDT COMPREHENSIVE METABOLIC PANEL Routine 08/06/2025 2:28 PM EDT URINALYSIS, COMPLETE, WITH REFLEX TO CULTURE Routine 08/06/2025 2:28 PM EDT CBC WITH AUTO DIFFERENTIAL Routine 08/06/2025 2:28 PM EDT XR LUMBAR SPINE 2-3 VIEWS Routine 08/06/2025 2:06 PM EDT ZZZ HISTORICAL HEPATITIS C AB W/REFL TO HCV RNA, QN, PCR Routine 02/02/2022 11:23 AM EDT HIV 1/2 ANTIGEN/ANTIBODY, FOURTH GENERATION W/RFL Routine 02/02/2022 11:23 AM EDT LIPID PANEL, STANDARD Routine 02/02/2022 11:23 AM EDT from Last 3 Months or Most Recently Relevant to Health Maintenance Results * CT Abdomen Pelvis w/o Contrast (08/06/2025 4:16 PM EDT) Anatomical Region Laterality Modality Body, Pelvis, Abdomen Computed T omography 08/06/2025 4:16 PM EDT Narrative 08/06/2025 4:50 PM EDT [place] [address] CT Scan Report Signed Patient: Haris Laurent MR#: [id number] : 1980 Acct:[id number] Age/Sex: 45 / M ADM Date: 08/06/25 Loc: HO.ED Attending Dr: Ordering Physician: Bertram Hsieh DO Date of Service: 08/06/25 Procedure(s): CT abdomen pelvis wo IV con Accession Number(s): [id number] cc: [facility]; Bertram Hsieh DO Report Number: [id number]: Total DLP = 544.00 mGy-cm Reason for Exam: renal colic left EXAMINATION: CT ABDOMEN AND PELVIS WITHOUT CONTRAST CLINICAL INFORMATION: Left-sided renal colic. COMPARISON: None available. TECHNIQUE: Multidetector volumetric imaging was performed from the superior aspect of the liver through the pubic symphysis. Sagittal and coronal reformatted images were obtained on the technologist's workstation. This CT examination was performed using dose optimization techniques as appropriate, variously including the following: *Automated exposure control *Adjustment of mA and/or kV according to patient size (this includes techniques or standardized protocols for targeted exams where dose is matched to indication/reason for exam; i.e. extremities or head) *Use of iterative reconstruction technique FINDINGS: LUNG BASES: Bases are clear bilaterally. Heart size is normal. GE junction is normal. There are no effusions. LIVER, GALLBLADDER, AND BILIARY TREE: The liver is normal in size, shape, and diffusely decreased in attenuation consistent with mild fatty infiltration. No focal hepatic lesion or biliary ductal dilatation is present. The gallbladder is unremarkable with no evidence of radiopaque gallstones, gallbladder wall thickening, or obvious pericholecystic inflammatory changes. PANCREAS: Normal. SPLEEN: Normal. ADRENAL GLANDS: Normal. KIDNEYS AND URETERS: There is a moderate left hydronephrosis and left hydroureter. There is a 2 mm obstructing calculus at the left ureterovesicular junction. Left kidney is otherwise normal. No mass or additional calculi. The right kidney is normal. No calculi, mass, or hydronephrosis evident. BLADDER: Underdistended but grossly normal. GASTROINTESTINAL TRACT: The small and large bowel are unremarkable. The appendix is unremarkable. ABDOMINAL WALL: No significant hernia is appreciated. LYMPH NODES: No abnormal lymphadenopathy present. VASCULAR: Normal. PELVIC VISCERA: Normal prostate and seminal vesicles. OSSEOUS STRUCTURES: No suspicious lytic or blastic bone lesions. Mild degenerative arthritis in the bilateral SI joints and hip joints. CT/CT abdomen pelvis wo IV con IMPRESSION: 1. Moderate left hydronephrosis and hydroureter secondary to a 2 mm obstructing calculus at the left ureterovesical junction. 2. No additional urological calculus evident. Kidneys otherwise image normally. 3. Mild diffuse fatty infiltration of the liver. 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 COMPARISON: None available. TECHNIQUE: Multidetector volumetric imaging was performed from the superior aspect of the liver through the pubic symphysis. Sagittal and coronal reformatted images were obtained on the technologist's workstation. This CT examination was performed using dose optimization techniques as appropriate, variously including the following: *Automated exposure control *Adjustment of mA and/or kV according to patient size (this includes techniques or standardized protocols for targeted exams where dose is matched to indication/reason for exam; i.e. extremities or head) *Use of iterative reconstruction technique FINDINGS: LUNG BASES: Bases are clear bilaterally. Heart size is normal. GE junction is normal. There are no effusions. LIVER, GALLBLADDER, AND BILIARY TREE: The liver is normal in size, shape, and diffusely decreased in attenuation consistent with mild fatty infiltration. No focal hepatic lesion or biliary ductal dilatation is present. The gallbladder is unremarkable with no evidence of radiopaque gallstones, gallbladder wall thickening, or obvious pericholecystic inflammatory changes. PANCREAS: Normal. SPLEEN: Normal. ADRENAL GLANDS: Normal. KIDNEYS AND URETERS: There is a moderate left hydronephrosis and left hydroureter. There is a 2 mm obstructing calculus at the left ureterovesicular junction. Left kidney is otherwise normal. No mass or additional calculi. The right kidney is normal. No calculi, mass, or hydronephrosis evident. BLADDER: Underdistended but grossly normal. GASTROINTESTINAL TRACT: The small and large bowel are unremarkable. The appendix is unremarkable. ABDOMINAL WALL: No significant hernia is appreciated. LYMPH NODES: No abnormal lymphadenopathy present. VASCULAR: Normal. PELVIC VISCERA: Normal prostate and seminal vesicles. OSSEOUS STRUCTURES: No suspicious lytic or blastic bone lesions. Mild degenerative arthritis in the bilateral SI joints and hip joints. CT/CT abdomen pelvis wo IV con IMPRESSION: 1. Moderate left hydronephrosis and hydroureter secondary to a 2 mm obstructing calculus at the left ureterovesical junction. 2. No additional urological calculus evident. Kidneys otherwise image normally. 3. Mild diffuse fatty infiltration of the liver. 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 Farm Manager: [facility] External Provider IMG CT PROCEDURES Edited Result - Final * (ABNORMAL) Urinalysis, Complete, with Reflex to Culture (08/06/2025 2:28 PM EDT) Color Urine Yellow [facility] Appearance Urine Clear [facility] PH 5.5 5.0 - 9.0 [facility] Glucose Urine UA Negative Negative mg/dL [facility] Urine Blood Small (1+)(A) Negative [facility] Specific [place] - Urine 1.025 1.005 - 1.025 [facility] Urine Protein Trace Neg-Trace mg/dL [facility] Urine Ketones Trace Negative mg/dL [facility] Nitrite Urine Negative Negative [facility] Leukocyte Esterase Urine Negative Negative [facility] RBC Urine 6-10(A) 0 - 2 /HPF [facility] Urine WBC 0-5 0 - 5 /HPF [facility] Urine Squamous Epithelial Cell 0-2 0 - 2 /HPF [facility] Urine Bacteria None Seen None Seen [facility] Hyaline Casts, Urine 0-2 0 - 2 /LPF [facility] 08/06/2025 2:28 PM EDT 08/06/2025 2:31 PM EDT Narrative [facility] - 08/06/2025 2:41 PM EDT [id number], Clean Catch us Generic External Data Provider LAB URINE ORDERAB LES Final Result [facility] [address] [place] [phone] [phone] * (ABNORMAL) CBC auto differential (08/06/2025 2:28 PM EDT) White Blood Count 6.4 4.8 - 10.8 X10*3/uL [facility] Red Blood Count 5.55 4.60 - 5.80 X10*6/uL [facility] Hemoglobin 14.9 14.0 - 18.0 g/dl [facility] Hematocrit 45.3 42.0 - 52.0 % [facility] Mean Corpuscular Volume 81.6 80.0 - 98.0 fL [facility] Mean Corpuscular Hemoglobin 26.8(L) 27.0 - 33.0 pg [facility] Mean Corpuscular HGB Conc 32.9 31.0 - 36.0 g/dl [facility] Red Cell Distribution Width 14.5 11.0 - 16.0 % [facility] Platelet Count 317 160 - 400 X10*3/uL [facility] Mean Platelet Volume 9.3(L) 9.4 - 12.4 fL [facility] Neutrophils Percent Auto 59.2 45 - 73 % [facility] Imm Gran Pct Auto 0.2 0.0 - 0.4 % [facility] Lymphocytes Percent Auto 29.7 20 - 40 % [facility] Monocytes Percent Auto 7.3 2 - 11 % [facility] Eosinophils Percent Auto 2.8 0 - 4 % [facility] Basophils Percent Auto 0.8 0 - 2 % [facility] NRBC Pct Auto 0.0 0.0 - 0.2 /100WBC [facility] Neutrophils Absolute Auto 3.8 2.0 - 8.3 x10*3/uL [facility] Imm Gran Abs Auto 0.01 0.00 - 0.03 X10*3/uL [facility] Lymphocytes Absolute Auto 1.9 1.2 - 4.9 X10*3/uL [facility] Monocytes Absolute Auto 0.5 0.1 - 1.2 X10*3/uL [facility] Eosinophils Absolute Auto 0.2 0.0 - 0.4 X10*3/uL [facility] Basophils Absolute Auto 0.1 0.0 - 0.2 X10*3/uL [facility] NRBC Abs Auto 0.000 0.0 - 0.012 X10*3/uL [facility] 08/06/2025 2:28 PM EDT 08/06/2025 2:32 PM EDT us Generic External Data Provider LAB BLOOD ORDERAB LES Final Result [facility] [address] [place] [phone] * (ABNORMAL) Comprehensive Metabolic Panel (08/06/2025 2:28 PM EDT) Sodium 146(H) 135 - 145 mmol/L [facility] Potassium 4.0 3.3 - 5.1 mmol/L [facility] Chloride 110(H) 96 - 108 mmol/L [facility] Carbon Dioxide 27 22 - 29 mmol/L [facility] Anion Gap 13 12 - 20 [facility] Urea Nitrogen (BUN) 9 9 - 16 mg/dL [facility] Creatinine, Serum 1.09 0.5 - 1.4 mg/dL [facility] Creatinine Clr Calc Pharmacy 98.4 [facility] Comment:eGFR (calculated fro m the MDRD study equation) and eCrCl(calculated from the Cockcroft-Gault equation) are based ondifferent parameters and may not yield comparable results.If eCrCl result is absurd, please check patient'sheight/weight. Estimated Glomerular Filt Rate >60 [facility] Comment:Chronic Kidney Disea se: Estimated GFR < 60 mL/min/1.89q2Himcpy Kidney Disease: Estimated GFR < 15 mL/min/1.73m2 Glucose 86 60 - 115 mg/dL [facility] Calcium 9.4 8.4 - 10.2 mg/dL [facility] Bilirubin, Total 0.7 0.0 - 1.0 mg/dL [facility] Aspartate Amino Transferase 28 5 - 37 U/L [facility] Alanine Aminotransferase 40 0 - 40 U/L [facility] Total Protein 7.5 6.5 - 8.0 g/dL [facility] Albumin Level 5.1(H) 3.5 - 5.0 g/dL [facility] Alkaline Phosphatase 118(H) 39 - 117 U/L [facility] 08/06/2025 2:28 PM EDT 08/06/2025 2:32 PM EDT us Generic External Data Provider LAB BLOOD ORDERAB LES Final Result Performing Organization Address City/State/[facility] Co de Phone Number [facility] [address] [place] [phone] * XR Lumbar Spine 2-3 Views (08/06/2025 2:06 PM EDT) Anatomical Region Laterality Modality Spine, L-spine Radiographic Enriqueta ging 08/06/2025 2:06 PM EDT Narrative 08/06/2025 2:12 PM EDT [address] [address] XRay Report Signed Patient: Haris Laurent MR#: [id number] : 1980 Acct:[id number] Age/Sex: 45 / M ADM Date: 08/06/25 Loc: HO.ED Attending Dr: Ordering Physician: Jesus Yu Date of Service: 08/06/25 Procedure(s): XR lumbar spine 2-3V Accession Number(s): [id number] cc: Jesus uY; [facility] Reason for Exam: back pain EXAMINATION: XR LUMBOSACRAL SPINE CLINICAL INFORMATION: back pain COMPARISON: None available. TECHNIQUE: Three views of the lumbosacral spine. FINDINGS: There are 5 nonrib-bearing lumbar vertebra. Vertebral body height and alignment is preserved. Disc spaces are preserved. There are small osteophytes involving anterior L4 and anterior superior L5. XR/XR lumbar spine 2-3V IMPRESSION: Unremarkable lumbar spine aside from minimal degenerative change at L4 and L5. 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 TECHNIQUE: Three views of the lumbosacral spine. FINDINGS: There are 5 nonrib-bearing lumbar vertebra. Vertebral body height and alignment is preserved. Disc spaces are preserved. There are small osteophytes involving anterior L4 and anterior superior L5. XR/XR lumbar spine 2-3V IMPRESSION: Unremarkable lumbar spine aside from minimal degenerative change at L4 and L5. Electronically signed by: Duran Leiva MD 08/06/2025 02:09 PM EDT RP Dictated By: Duran Leiva MD Signed By: <Electronically signed by Duran Leiva MD in OV> 08/06/25 1409 DD/ 1406 TD/TT: 08/06/25 1406 Aquaculture Farm Manager: [facility] External Provider IMG XR PROCEDURES Edited Result - Final * HEPATITIS C AB W/REFL TO HCV RNA, QN, PCR (02/02/2022 11:23 AM EDT) HEPATITIS C ANTIBODY NON-REACT [place] NON-REACT [place] [facility] INDEX 0.01 <1.00 [facility] Comment: HCV antibody was non-reactive. There is no laboratory evidence of HCV infection. In most cases, no further action is required. However, if recent HCV exposure is suspected, a test for HCV RNA (test code 52717) is suggested. For additional information please refer to http://education.[employer]/faq/YCM00s3 (This link is being provided for informational/ educational purposes only.) 02/02/2022 11:2 3 AM EDT Lisette Perez NP HISTORICAL/NON ORDERABLE LABS F inal Result [facility] [address] * HIV 1/2 ANTIGEN/ANTIBODY,FOURTH GENERATION W/RFL (02/02/2022 11:23 AM EDT) HIV-1/2 ANTIGEN AND ANTIBODIES, 4TH GENERATION W/ REFLEX NON-REACT [place] NON-REACT DENVER [facility] Comment: HIV-1 antigen and HIV-1/HIV-2 antibodies were not detected. There is no laboratory evidence of HIV infection. PLEASE NOTE: This information has been disclosed to you from records whose confidentiality may be protected by state law. If your state requires such protection, then the state law prohibits you from making any further disclosure of the information without the specific written consent of the person to whom it pertains, or as otherwise permitted by law. A general authorization for the release of medical or other information is NOT sufficient for this purpose. For additional information please refer to http://[employer]Sync.[employer]/faq/WDD512 (This link is being provided for informational/ educational purposes only.) The performance of this assay has not been clinically validated in patients less than 2 years old. 02/02/2022 11:2 3 AM EDT us Lisette Perez IMMIGRATION GUARD LAB BLOOD ORDERABLES Final Resu lt [facility] [address] * (ABNORMAL) LIPID PANEL, STANDARD (02/02/2022 11:23 AM EDT) Chol/HDLC Ratio 3.9 <5.0 (calc) [facility] Cholesterol, Total 172 <200 mg/dL [facility] HDL Cholesterol 44 > OR = 40 mg/dL [facility] LDL Cholesterol 101(H) mg/dL (calc) [facility] Comment: Reference range: <100 Desirable range <100 mg/dL for primary prevention; <70 mg/dL for patients with CHD or diabetic patients with > or = 2 CHD risk factors. LDL-C is now calculated using the Frank-Clarisa calculation, which is a validated novel method providing better accuracy than the Friedewald equation in the estimation of LDL-C. Frank GRIGGS et al. SONY. 2013;310(19): 7263-7487 (http://education.[employer]/faq/JBX556) Non-HDL Cholesterol 128 <130 mg/dL (calc) [facility] Comment: For patients with diabetes plus 1 major ASCVD risk factor, treating to a non-HDL-C goal of <100 mg/dL (LDL-C of <70 mg/dL) is considered a therapeutic option. Triglycerides 172(H) <150 mg/dL [facility] 02/02/2022 11:2 3 AM EDT us Lisette Perez IMMIGRATION GUARD LAB BLOOD ORDERABLES Final Resu lt [facility] [address] from Last 3 Months or Most Recently Relevant to Health Maintenance Insurance [facility] C3 HSN FULL Care Teams Manager Printing Relationship Specialty Start Date End Date Whitney Hancock MD [address] [place] [address] PCP - General Family Medicine 08/29/23
--- OUTSIDE RECORDS SUMMARY | 2025-08-06 18:19 | XMS_ITS | Encounter Summary ---
Author Organization [facility] Address [address] [facility] [address] [place] [address] Care Team Providers Care Mental Hygienist Name Role Phone Whitney Hancock MD Primary Care Provider [phone] Encounter Details Date Type Department Care Team (Late st Contact Info) Description 08/06/2025 Orders Only [facility] External Provider, [facility] Social History Tobacco Use Types Packs/Day Years Used Date Smoking Tobacco: Unknown Depression Answer Date Recorded Patient Health Questionnaire-9 [...] AM EDT documented as of this encounter Plan of Treatment Not on file documented as of this encounter Procedures Procedure Name Priority Date/Time Associated Diagnosis Comments CT ABDOMEN PELVIS WO CONTRAST Routine 08/06/2025 4:16 PM EDT URINALYSIS, COMPLETE, WITH REFLEX TO CULTURE Routine 08/06/2025 2:28 PM EDT CBC WITH AUTO DIFFERENTIAL Routine 08/06/2025 2:28 PM EDT COMPREHENSIVE METABOLIC PANEL Routine 08/06/2025 2:28 PM EDT XR LUMBAR SPINE 2-3 VIEWS Routine 08/06/2025 2:06 PM EDT documented in this encounter Results * CT Abdomen Pelvis w/o Contrast (08/06/2025 4:16 PM EDT) Anatomical Region Laterality Modality Body, Pelvis, Abdomen Computed T omography 08/06/2025 4:16 PM EDT Narrative 08/06/2025 4:50 PM EDT [address] [address] [address] Scan Report Signed Patient: Haris Laurent MR#: [id number] : 1980 Acct:[id number] Age/Sex: 45 / M ADM Date: 08/06/25 Loc: HO.ED Attending Dr: Ordering Physician: Bertram Hsieh DO Date of Service: 08/06/25 Procedure(s): CT abdomen pelvis wo IV con Accession Number(s): [id number] cc: [facility]; Bertram Hsieh DO Report Number: [id number]: Total DLP = 544.00 mGy-cm Reason for [...] Ousmane Epperson MD 08/06/2025 04:47 PM EDT RP Dictated By: Ousmane Epperson MD Signed By: <Electronically signed by Ousmane Epperson MD in OV> 08/06/25 1647 DD/ 1616 TD/TT: 08/06/25 1629 Allergy And Immunology Specialist: Procedure Note Donotuseinterpreter, Image - 08/06/[address] [place] [address] [address] Scan Report Signed Patient: Haris LaurentMR#: [id number] : 1980Acct:[id number] Age/Sex: 45 / MADM Date: 08/06/25 Loc: HO.ED Attending Dr: Ordering Physician: Bertram Hsieh DO Date of Service: 08/06/25 Procedure(s): CT abdomen pelvis wo IV con Accession Number(s): [id number] cc: [facility]; Bertram Hsieh DO Report Number: [id number]: Total DLP = 544.00 mGy-cm Reason for [...] Ousmane Epperson MD 08/06/2025 04:47 PM EDT RP Dictated By: Ousmane Epperson MD Signed By: <Electronically signed by Ousmane Epperson MD in OV> 08/06/25 1647 DD/ 1616 TD/TT: 08/06/25 1629 Allergy And Immunology Specialist: [facility] External Provider IMG CT PROCEDURES Edited Result - Final * (ABNORMAL) Comprehensive Metabolic Panel (08/06/2025 2:28 PM EDT) Sodium 146(H) 135 - 145 mmol/L [facility] Potassium 4.0 3.3 - 5.1 mmol/L [facility] Chloride 110(H) 96 - 108 mmol/L [facility] Carbon Dioxide 27 22 - 29 mmol/L [facility] Anion Gap 13 12 - 20 [facility] Urea Nitrogen (BUN) 9 9 - 16 mg/dL [facility] Creatinine, Serum 1.09 0.5 - 1.4 mg/dL [facility] Creatinine Clr Calc Pharmacy 98.4 [facility] Comment:eGFR (calculated fro m the MDRD study equation) and eCrCl(calculated from the Cockcroft-Gault equation) are based ondifferent parameters and may not yield comparable results.If eCrCl result is absurd, please check patient'sheight/weight. Estimated Glomerular Filt Rate >60 [facility] Comment:Chronic Kidney Disea se: Estimated GFR < 60 mL/min/1.57b7Mijzkd Kidney Disease: Estimated GFR < 15 mL/min/1.73m2 Glucose 86 60 - 115 mg/dL [facility] Calcium 9.4 8.4 - 10.2 mg/dL [facility] Bilirubin, Total 0.7 0.0 - 1.0 mg/dL [facility] Aspartate Amino Transferase 28 5 - 37 U/L [facility] Alanine Aminotransferase 40 0 - 40 U/L [facility] Total Protein 7.5 6.5 - 8.0 g/dL [facility] Albumin Level 5.1(H) 3.5 - 5.0 g/dL [facility] Alkaline Phosphatase 118(H) 39 - 117 U/L [facility] 08/06/2025 2:28 PM EDT 08/06/2025 2:32 PM EDT us Generic External Data Provider LAB BLOOD ORDERAB LES Final Result Performing Organization Address [facility]/ZIP Co de Phone Number [facility] [address] [place] [phone] * (ABNORMAL) Urinalysis, Complete, with Reflex to Culture (08/06/2025 2:28 PM EDT) Color Urine Yellow [facility] Appearance Urine Clear [facility] PH 5.5 5.0 - 9.0 [facility] Glucose Urine UA Negative Negative mg/dL [facility] Urine Blood Small (1+)(A) Negative [facility] Specific [place] - Urine 1.025 1.005 - 1.025 [facility] Urine Protein Trace Neg-Trace mg/dL [facility] Urine Ketones Trace Negative mg/dL [facility] Nitrite Urine Negative Negative [facility] Leukocyte Esterase Urine Negative Negative [facility] RBC Urine 6-10(A) 0 - 2 /HPF [facility] Urine WBC 0-5 0 - 5 /HPF [facility] Urine Squamous Epithelial Cell 0-2 0 - 2 /HPF [facility] Urine Bacteria None Seen None Seen [facility] Hyaline Casts, Urine 0-2 0 - 2 /LPF [facility] 08/06/2025 2:28 PM EDT 08/06/2025 2:31 PM EDT Narrative [facility] - 08/06/2025 2:41 PM EDT [id number], Clean Catch us Generic External Data Provider LAB URINE ORDERAB LES Final Result Performing Organization Address [facility]/ZIP Co de Phone Number [facility] [address] [place] [phone] * (ABNORMAL) CBC auto differential (08/06/2025 2:28 PM EDT) White Blood Count 6.4 4.8 - 10.8 X10*3/uL [facility] Red Blood Count 5.55 4.60 - 5.80 X10*6/uL [facility] Hemoglobin 14.9 14.0 - 18.0 g/dl [facility] Hematocrit 45.3 42.0 - 52.0 % [facility] Mean Corpuscular Volume 81.6 80.0 - 98.0 fL [facility] Mean Corpuscular Hemoglobin 26.8(L) 27.0 - 33.0 pg [facility] Mean Corpuscular HGB Conc 32.9 31.0 - 36.0 g/dl [facility] Red Cell Distribution Width 14.5 11.0 - 16.0 % [facility] Platelet Count 317 160 - 400 X10*3/uL [facility] Mean Platelet Volume 9.3(L) 9.4 - 12.4 fL [facility] Neutrophils Percent Auto 59.2 45 - 73 % [facility] Imm Gran Pct Auto 0.2 0.0 - 0.4 % [facility] Lymphocytes Percent Auto 29.7 20 - 40 % [facility] Monocytes Percent Auto 7.3 2 - 11 % [facility] Eosinophils Percent Auto 2.8 0 - 4 % [facility] Basophils Percent Auto 0.8 0 - 2 % [facility] NRBC Pct Auto 0.0 0.0 - 0.2 /100WBC [facility] Neutrophils Absolute Auto 3.8 2.0 - 8.3 x10*3/uL [facility] Imm Gran Abs Auto 0.01 0.00 - 0.03 X10*3/uL [facility] Lymphocytes Absolute Auto 1.9 1.2 - 4.9 X10*3/uL [facility] Monocytes Absolute Auto 0.5 0.1 - 1.2 X10*3/uL [facility] Eosinophils Absolute Auto 0.2 0.0 - 0.4 X10*3/uL [facility] Basophils Absolute Auto 0.1 0.0 - 0.2 X10*3/uL [facility] NRBC Abs Auto 0.000 0.0 - 0.012 X10*3/uL [facility] 08/06/2025 2:28 PM EDT 08/06/2025 2:32 PM EDT us Generic External Data Provider LAB BLOOD ORDERAB LES Final Result Performing Organization Address City/State/[facility] Co de Phone Number [facility] [address] [place] [phone] * XR Lumbar Spine 2-3 Views (08/06/2025 2:06 PM EDT) Anatomical Region Laterality Modality Spine, L-spine Radiographic Enriqueta ging 08/06/2025 2:06 PM EDT Narrative 08/06/2025 2:12 PM EDT [address] [address] XRay Report Signed Patient: Haris Laurent MR#: [id number] : 1980 Acct:[id number] Age/Sex: 45 / M ADM Date: 08/06/25 Loc: .ED Attending Dr: Ordering Physician: Jesus Yu Date of Service: 08/06/25 Procedure(s): XR lumbar spine 2-3V Accession Number(s): [id number] cc: Jesus Yu; [facility] Reason for Exam: back pain EXAMINATION: [...] signed by Duran Leiva MD in OV> 08/06/251408 DD/ 05 TD/TT: 08/06/251405 Allergy And Immunology Specialist: Procedure Note Donotuseinterpreter, Image - 08/06/[address] [address] XRay Report Signed Patient: Haris LaurentMR#: [id number] : 1980Acct:[id number] Age/Sex: 45 / MADM Date: 08/06/25 Loc: .ED Attending Dr: Ordering Physician: Jesus Yu Date of Service: 08/06/25 Procedure(s): XR lumbar spine 2-3V Accession Number(s): [id number] cc: Jesus Yu; [facility] Reason for Exam: back pain EXAMINATION: [...] Leiva MD in OV> 08/06/25 1409 DD/ 05 TD/TT: 08/06/251405 Allergy And Immunology Specialist: [facility] External Provider IMG XR PROCEDURES Edited Result - Final documented in this encounter Visit Diagnoses Not on filedocumented in this encounter Additional Health Concerns Assessment Noted Time PHQ-9 Depression Total Score: 9 04/28/20 25 4:04 PM EDT documented as of this encounter Care Teams Mental Hygienist Relationship Specialty Start Date End Date Whitney Hancock MD [address] [place] [address] PCP - General Family Medicine 08/29/23 documented as of this encounter
[2025-08-06 19:06] VITALS: BP 138/87; PULSE 73; RESP 15; TEMP 37; O2SAT 97
== END 2025-08-06 19:06 | disposition home or self-care (01) ==
PROVIDERS: Physician Assistant; Emergency Provider Emergency Medicine
DX: N20.1 Calculus of ureter (principal); N23 Unspecified renal colic; N13.30 Unspecified hydronephrosis; R11.2 Nausea with vomiting, unspecified
CPT/HCPCS: 36415; 72100; 74176; 80053; 81001; 85025; 96361; 96365; 96375; 96376; 99284; J0131; J1885; J2270; Q9967

== ENCOUNTER → 2025-08-06 13:31 | Outpatient (BNV) | payer MEDICAID, SELFPAY | PROVIDERS: Emergency Provider Emergency Medicine; Visit Provider Radiology Diagnostic Radiology | DX: N13.2 Hydronephrosis with renal and ureteral calculous obstruction (principal); M54.50 Low back pain, unspecified | CPT/HCPCS: 72100; 74176 ==

== ENCOUNTER 2025-09-07 13:13 | Emergency (ER) | payer MEDICAID, SELFPAY ==
--- NOTE | 2025-09-07 | ECG_ITS ---
Test Reason : CP Blood Pressure : */* mmHG Vent. Rate : 83 BPM Atrial Rate : 83 BPM P-R Int : 156 ms QRS Dur : 84 ms QT Int : 352 ms P-R-T Axes : 68 63 59 degrees QTcB Int : 413 ms Normal sinus rhythm Normal ECG No previous ECGs available Referred By: Generic ED Physician Electronically Signed By: BAM SUAREZ MD
--- NOTE | ~2025-09-07 | CT_ITS ---
CLINICAL HISTORY: dizziness CT head without contrast Comparison: None provided Findings: The size and shape of the ventricular system is within normal limits for this patient's age. Minor areas of low-attenuation are seen within the periventricular white matter. Attenuation of the brain parenchyma is otherwise within normal limits. Cortez-white differentiation is well preserved. No midline shift or mass effect. No intracranial hemorrhage. No calvarial fractures. Near-complete opacification of the left maxillary sinus with surrounding bony sclerosis. There is hyperdense material seen within portions of the left maxillary sinus. Paranasal sinuses and mastoid air cells are otherwise unremarkable. IMPRESSION: 1. No acute intracranial findings. 2. Likely chronic left maxillary sinus disease. This document has been electronically signed by: Bryce Andujar MD on 09/07/2025 15:09:11
--- NOTE | ~2025-09-07 | XR_ITS ---
CLINICAL HISTORY: chest pain Exam: PA and lateral views of the chest. Comparison: CT of the abdomen August 08, 2025 Findings: Lungs are well inflated. Mediastinal contours, cardiac silhouette, and pulmonary vasculature are within normal limits. No focal areas of consolidation. No pleural effusion or pneumothorax. Impression: No acute findings. This document has been electronically signed by: Bryce Andujar MD on 09/07/2025 15:12:49
--- NOTE | 2025-09-07 13:32 | PC.NURSE ---
program engagement director [id number]
[2025-09-07 13:35] VITALS: BP 132/83; PULSE 86; RESP 18; TEMP 36.3; O2SAT 98; BMI 23.9
--- NOTE | 2025-09-07 13:35 | ED_ITS ---
HPI - General Adult General Chief complaint: Chest Pain Stated complaint: CP, dizzy Related Data Previous Rx's ?Medication ?Instructions ?Recorded morphine 15 mg immediate release 15 mg PO Q6H PRN pain #14 tabs 08/03/23 tablet ondansetron 4 mg disintegrating 4 mg PO Q8H PRN nausea and 08/03/23 tablet vomiting #20 tabs hydromorphone 2 mg tablet 2 mg PO Q6H PRN pain #10 tab s 11/08/24 (Dilaudid) oxycodone 5 mg tablet 5 mg PO BID PRN pain #7 tabs 02/18/25 ketorolac 10 mg tablet 10 mg PO Q6H PRN pain #20 ta bs 08/06/25 ondansetron 4 mg disintegrating 4 mg PO Q8H PRN nausea and 08/06/25 tablet vomiting #8 tabs prednisone 20 mg tablet 20 mg PO DAILY #4 tabs 08/06 tamsulosin 0.4 mg capsule (Flomax) 0.4 mg PO BEDTIME # 5 caps 08/06/25 Allergies Allergy/AdvReac Type Severity Reaction Status Date / Time No Known Allergies Allergy Verified 09/07/25 13:38 [facility] Past Medical History Medical History Trigeminal neuralgia Social History Social History Patient Tobacco Use Status: Never used Tobacco Advance Directives: No Advance Directives Information Provided: No Do you have a plan to hurt others: No Plan Physical Exam ED Vital Signs: BMI result Body Mass Index 23.9 Course Course Course Narrative: This is a rapid medical exam performed by Angeles Ventura NP: Additional HPI, ROS, PE not included below will be deferred to primary provider. Patient is a 45y/o M presenting with complaint of dizziness and chest pain for the past hour. Difficulty walking due to dizziness. Ambulated into triage with steady gait. Plan: EKG, labs, CT head Patient left the emergency department before myself or any of the other clinicians could review or explain physical exam findings, test results, need or lack there of for additional testing, treatment options, or a treatment plan. Medical Decision Making Lab Data 09/07/25 14:24 09/07/25 14:24 Labs: Lab Results 10/19/25 10/19/25 Range/Units 14:21 14:24 WBC 7.5 (4.8-10.8) X10*3/uL RBC 5.81 H (4.60-5.80) X10*6/uL Hgb 15.3 (14.0-18.0) g/dl Hct 46.8 (42.0-52.0) % MCV 80.6 (80.0-98.0) fL MCH 26.3 L (27.0-33.0) pg MCHC 32.7 (31.0-36.0) g/dl RDW 13.5 (11.0-16.0) % Plt Count 305 (160-400) X10*3/uL MPV 9.7 (9.4-12.4) fL Immature Gran % (Auto) 0.1 (0.0-0.4) % Neut % (Auto) 74.2 H (45-73) % Lymph % (Auto) 19.1 L (20-40) % [place] % (Auto) 5.5 (2-11) % Eos % (Auto) 0.7 (0-4) % Baso % (Auto) 0.4 (0-2) % Lymph # (Auto) 1.4 (1.2-4.9) X10*3/uL [place] # (Auto) 0.4 (0.1-1.2) X10*3/uL Eos # (Auto) 0.1 (0.0-0.4) X10*3/uL Baso # (Auto) 0.0 (0.0-0.2) X10*3/uL Abs Immat Gran (auto) 0.01 (0.00-0.03) X10*3/uL Absolute Neuts (auto) 5.6 (2.0-8.3) x10*3/uL Absolute Nucleated RBC 0.000 (0.0-0.012) X10*3/uL Nucleated RBC % (auto) 0.0 (0.0-0.2) /100WBC PT 10.9 (10.9-12.4) SEC INR 1.0 (0.9-1.1) Sodium 140 (135-145) mmol/L Potassium 3.9 (3.3-5.1) mmol/L Chloride 105 (96-108) mmol/L Carbon Dioxide 26 (22-29) mmol/L Anion Gap 13 (12-20) BUN 7 L (9-16) mg/dL Creatinine 1.01 (0.5-1.4) mg/dL Estim Creat Clear Calc 106.2 Estimated GFR > 60 Random Glucose 106 (60-115) mg/dL Calcium 9.6 (8.4-10.2) mg/dL Magnesium 2.2 (1.6-2.6) mg/dL Total Bilirubin 0.9 (0.0-1.0) mg/dL AST 23 (5-37) U/L ALT 29 (0-40) U/L Alkaline Phosphatase 117 (39-117) U/L Troponin I High Sens < 2.7 (<3.5-35.0) ng/L Total Protein 7.3 (6.5-8.0) g/dL Albumin 5.1 H (3.5-5.0) g/dL COVID-19 (KASSANDRA) Negative (Negative) COVID-19 Clin Com See Note Influenza Type A (TEDDY) Negative (Negative) Influenza Type B (TEDDY) Negative (Negative) Influenza A & B Note See Note Discharge Plan Discharge Clinical Impression: Chest pain Patient Disposition: Left W/O Completing Treatment Prescriptions: No Action hydromorphone [Dilaudid] 2 mg tablet 2 mg PO Q6H PRN (Reason: pain) Qty: 10 0RF Rx Instructions: Partial Fill upon patient request. ondansetron 4 mg tablet,disintegrating 4 mg PO Q8H PRN (Reason: nausea and vomiting) Qty: 8 0RF prednisone 20 mg tablet 20 mg PO DAILY Qty: 4 0RF ketorolac 10 mg tablet 10 mg PO Q6H PRN (Reason: pain) Qty: 20 0RF Rx Instructions: maximum total duration of 5 days from all oral, intranasal, or parenteral formulations tamsulosin [Flomax] 0.4 mg capsule 0.4 mg PO BEDTIME Qty: 5 0RF ondansetron 4 mg tablet,disintegrating 4 mg PO Q8H PRN (Reason: nausea and vomiting) Qty: 20 0RF morphine 15 mg tablet 15 mg PO Q6H PRN (Reason: pain) Qty: 14 0RF Rx Instructions: partial fill okay; Partial Fill upon patient request. oxycodone 5 mg tablet 5 mg PO BID PRN (Reason: pain) Qty: 7 0RF Rx Instructions: Partial Fill upon patient request. Discharge Date/Time: 09/07/25 18:48
[2025-09-07 14:29] LABS: Hematocrit 46.8 % (42.0-52.0); Hemoglobin 15.3 g/dl (14.0-18.0); Imm Gran Abs Auto 0.01 X10*3/uL (0.00-0.03); Imm Gran Pct Auto 0.1 % (0.0-0.4); Lymphocytes Absolute Auto 1.4 X10*3/uL (1.2-4.9); MANUAL DIFF FLAG NO; Mean Corpuscular HGB Conc 32.7 g/dl (31.0-36.0); Mean Corpuscular Hemoglobin 26.3 pg (27.0-33.0); Mean Corpuscular Volume 80.6 fL (80.0-98.0); NRBC Abs Auto 0.000 X10*3/uL (0.0-0.012); NRBC Pct Auto 0.0 /100WBC (0.0-0.2); Platelet Count 305 X10*3/uL (160-400); Red Blood Count 5.81 X10*6/uL (4.60-5.80); White Blood Count 7.5 X10*3/uL (4.8-10.8)
[2025-09-07 14:36] LABS: INTERNATIONAL NORM RATIO 1.0 (0.9-1.1); Prothrombin Time 10.9 SEC (10.9-12.4)
[2025-09-07 14:45] LABS: COVID-19 Test Negative (Negative); IDNOW Serial# 152EDE1D; IDNOW Serial# 16C4AD1C; Influenza B2 Negative (Negative)
[2025-09-07 14:46] LABS: Alanine Aminotransferase 29 U/L (0-40); Albumin Level 5.1 g/dL (3.5-5.0); Alkaline Phosphatase 117 U/L (39-117); Anion Gap 13 (12-20); Aspartate Amino Transferase 23 U/L (5-37); Blood Urea Nitrogen 7 mg/dL (9-16); Calcium 9.6 mg/dL (8.4-10.2); Carbon Dioxide 26 mmol/L (22-29); Chloride 105 mmol/L (96-108); Creatinine Clr Calc Pharmacy 106.2; Estimated Glomerular Filt Rate > 60; Magnesium 2.2 mg/dL (1.6-2.6); Potassium 3.9 mmol/L (3.3-5.1); Sodium 140 mmol/L (135-145); Total Protein 7.3 g/dL (6.5-8.0)
[2025-09-07 14:59] LABS: Troponin-I High Sensitivity < 2.7 ng/L (<3.5-35.0)
[2025-09-07 16:03] VITALS: BP 145/81; PULSE 79; RESP 16; TEMP 36.7; O2SAT 97
--- OUTSIDE RECORDS SUMMARY | 2025-09-07 18:52 | XMS_ITS | Clinical Summary ---
Author Organization [facility] Address [address] [place] [phone] Phone Care Team Providers Care Garden Equipment Mechanic Name Role Phone Physician, No Pcp Primary Care Provider Unavaila ble Allergies No known active allergies Medications oxyCODONE (OXY-IR) 5 mg immediate release capsule Take 1 capsule (5 mg total) by mouth every 6 (six) hours if needed for severe pain for up to 6 doses. Max Daily Amount: 20 mg 6 capsule 01/22/2025 Active Social History Tobacco Use Types Packs/Day Years [...] 70 01/22/2025 2:02 AM EST Temperature 37 C (98.6 F) 01/21/2025 10:10 PM EST Respiratory Rate 16 01/22/2025 2:02 AM EST Oxygen Saturation 98% 01/21/2025 10:10 PM EST Inhaled Oxygen Concentration - - Weight 90.7 kg (200 lb) 01/21/2025 10:10 PM EST Height 188 cm (6' 2 ) 01/21/2025 10:10 PM EST Body Mass Index 25.68 01/21/2025 10:10 PM EST Plan of Treatment Health Maintenance Due Date Last Done Comments Colorectal Cancer Screening: Colonoscopy 1980 Hepatitis B Vaccines (1 of 3 - 19+ 3-dose series) 1998 Hepatitis C Screening 10/23/2022 Social Influencers of Health Screening 10/23/2022 Depression Screening 11/20/2024 COVID-19 Vaccine (3 - 2024-2 6 season) 2025 04/05/2021, 03/11/2021 Influenza Vaccine (#1) 2025 09/01/2017 Cholesterol Screening (Lipid Panel) 02/02/2027 02/02/2022 DTaP,Tdap,and Td Vaccines (3 - Td or Tdap) 02/03/2032 02/02/2022, 12/15/2013 RSV Immunization Adult Patients (1 - 1-dose 75+ series) 2054 Hepatitis [...] 5 Years) and At-Risk Patients (6 to 49 Years) Aged Out No longer eligible b ased on patient's age to complete this topic RSV Immunization Patients Under 20 months Aged Out No longer eligible b ased on patient's age to complete this topic Varicella Vaccines Aged Out No longer eligible based on patient's age to complete this topic Insurance [place]NG [id number] MEDICAID - [place] Care Teams Garden Equipment Mechanic Relationship Specialty Start Date End Date Physician, No Pcp PCP - General 01/22/25
--- OUTSIDE RECORDS SUMMARY | 2025-09-07 18:52 | XMS_ITS | Encounter Summary ---
Author Organization [employer] Address [address] [place] [address] Care Team Providers Care Money Position Officer Name Role Phone Whitney Hancock MD Primary Care Provider [phone] Encounter Details Date Type Department Care Team (Late st Contact Info) Description 09/07/2025 Orders Only GENERIC EXTERNAL DATA DEPARTMENT Provider, Generic External Data Social History Tobacco Use Types Packs/Day Years [...] as of this encounter Plan of Treatment Upcoming Encounters Date Type Department Care Team (Late st Contact Info) Description 11/04/2025 11:30 AM EST Office Visit [facility] [address] [place] [address] Whitney Hancock MD [address] [place] [address] documented as of this encounter Procedures Procedure Name Priority Date/Time Associated Diagnosis Comments XR CHEST 2 VIEWS Routine 09/07/2025 3:[address] HEAD WO CONTRAST Routine 09/07/2025 3 :09 PM EDT HIGH SENSITIVITY TROPONIN I Routine 09/07/2025 2:24 PM EDT CBC WITH AUTO DIFFERENTIAL Routine 09/07/2025 2:24 PM EDT PROTHROMBIN TIME-INR Routine 09/07/2025 2:24 PM EDT MAGNESIUM Routine 09/07/2025 2:24 PM EDT COMPREHENSIVE METABOLIC PANEL Routine 09/07/2025 2:24 PM EDT INFLUENZA A B2 ID NOW (Banter!) Routine 09/07/2025 2:21 PM EDT COVID-19 ID NOW (Banter!) Routine 09/07/2025 2:21 PM EDT documented in this encounter Results * XR Chest 2 Views (09/07/2025 3:12 PM EDT) Anatomical Region Laterality Modality Chest Radiographic Enriqueta ging 09/07/2025 3:12 PM EDT Narrative 09/07/2025 3:13 PM EDT [place] [address] XRay Report Signed Patient: Haris Laurent MR#: [id number] : 1980 Acct:[id number] Age/Sex: 45 / M ADM Date: 09/07/25 Loc: HO.ED Attending Dr: Ordering Physician: Mandi Ventura NP Date of Service: 09/07/25 Procedure(s): XR chest 2V Accession Number(s): [id number] cc: [facility]; Mandi Ventura NP Reason for Exam: chest pain CLINICAL HISTORY: chest pain Exam: PA and lateral views of the chest. Comparison: CT of the abdomen August 08, 2025 Findings: Lungs are well inflated. Mediastinal contours, cardiac silhouette, and pulmonary vasculature are within normal limits. No focal areas of consolidation. No pleural effusion or pneumothorax. Impression: No acute findings. This document has been electronically signed by: Bryce Andujar MD on 09/07/2025 15:12:49 Dictated By: Bryce Andujar MD Signed By: <Electronically signed by Bryce Andujar MD in OV> 09/07/251512 DD/ 11 TD/TT: 09/07/251511 Packaging Mechanic: Procedure Note Donotuseinterpreter, Image - 09/07/[address] [address] XRay Report Signed Patient: Haris LaurentMR#: [id number] : 1980Acct:[id number] Age/Sex: 45 / MADM Date: 09/07/25 Loc: .ED Attending Dr: Ordering Physician: Mandi Ventura NP Date of Service: 09/07/25 Procedure(s): XR chest 2V Accession Number(s): [id number] cc: [facility]; Mandi Ventura NP Reason for Exam: chest pain CLINICAL HISTORY: chest pain Exam: PA and lateral views of the chest. Comparison: CT of the abdomen August 08, 2025 Findings: Lungs are well inflated. Mediastinal contours, cardiac silhouette, and pulmonary vasculature are within normal limits. No focal areas of consolidation. No pleural effusion or pneumothorax. Impression: No acute findings. This document has been electronically signed by: Bryce Andujar MD on 09/07/2025 15:12:49 Dictated By: Bryce Andujar MD Signed By: <Electronically signed by Bryce Andujar MD in OV> 09/07/251512 DD/ 11 TD/TT: 09/07/251511 Packaging Mechanic: [facility] External Provider IMG XR PROCEDURES Final Result * CT Head w/o Contrast (09/07/2025 3:09 PM EDT) Anatomical Region Laterality Modality Head, Neck Computed Tomogra phy 09/07/2025 3:09 PM EDT Narrative 09/07/2025 3:10 PM EDT [address] [address] [address] Scan Report Signed Patient: Haris Laurent MR#: [id number] : 1980 Acct:[id number] Age/Sex: 45 / M ADM Date: 09/07/25 Loc: HO.ED Attending Dr: Ordering Physician: Mandi Ventura NP Date of Service: 09/07/25 Procedure(s): CT head/brain wo IV con Accession Number(s): [id number] cc: [facility]; Mandi Ventura NP Report Number: [id number]: Total DLP = 773.00 mGy-cm Reason for Exam: dizziness CLINICAL HISTORY: dizziness CT head without contrast Comparison: None provided Findings: The size and shape of the ventricular system is within normal limits for this patient's age. Minor areas of low-attenuation are seen within the periventricular white matter. Attenuation of the brain parenchyma is otherwise within normal limits. Cortez-white differentiation is well preserved. No midline shift or mass effect. No intracranial hemorrhage. No calvarial fractures. Near-complete opacification of the left maxillary sinus with surrounding bony sclerosis. There is hyperdense material seen within portions of the left maxillary sinus. Paranasal sinuses and mastoid air cells are otherwise unremarkable. IMPRESSION: 1. No acute intracranial findings. 2. Likely chronic left maxillary sinus disease. This document has been electronically signed by: Bryce Andujar MD on 09/07/2025 15:09:11 Dictated By: Bryce Andujar MD Signed By: <Electronically signed by Bryce Andujar MD in OV> 09/07/25 1510 DD/ 1509 TD/TT: 09/07/25 1509 Packaging Mechanic: Procedure Note Donotuseinterpreter, Image - 09/07/[address] [address] [address] Scan Report Signed Patient: Haris LaurentMR#: [id number] : 1980Acct:[id number] Age/Sex: 45 / MADM Date: 09/07/25 Loc: HO.ED Attending Dr: Ordering Physician: Mandi Ventura NP Date of Service: 09/07/25 Procedure(s): CT head/brain wo IV con Accession Number(s): [id number] cc: [facility]; Mandi Ventura NP Report Number: [id number]: Total DLP = 773.00 mGy-cm Reason for Exam: dizziness CLINICAL HISTORY: dizziness CT head without contrast Comparison: None provided Findings: The size and shape of the ventricular system is within normal limits for this patient's age. Minor areas of low-attenuation are seen within the periventricular white matter. Attenuation of the brain parenchyma is otherwise within normal limits. Cortez-white differentiation is well preserved. No midline shift or mass effect. No intracranial hemorrhage. No calvarial fractures. Near-complete opacification of the left maxillary sinus with surrounding bony sclerosis. There is hyperdense material seen within portions of the left maxillary sinus. Paranasal sinuses and mastoid air cells are otherwise unremarkable. IMPRESSION: 1. No acute intracranial findings. 2. Likely chronic left maxillary sinus disease. This document has been electronically signed by: Bryce Andujar MD on 09/07/2025 15:09:11 Dictated By: Bryce Andujar MD Signed By: <Electronically signed by Bryce Andujar MD in OV> 09/07/25 1510 DD/ 1509 TD/TT: 09/07/25 1509 Packaging Mechanic: [facility] External Provider IMG CT PROCEDURES Final Result * High Sensitivity Troponin I (09/07/2025 2:24 PM EDT) TROPONIN I HIGH SENSITIVITY <2.7 <3.5 - 35.0 ng/L [facility] Comment:The Bone high sens itivity Troponin-I results should beused in conjunction with other diagnostic information suchas ECG, clinical observations and information, and patientsymptoms to aid in the diagnosis of ME. 09/07/2025 2:24 PM EDT 09/07/2025 2:27 PM EDT Generic External Data Provider LAB BLOOD ORDERAB LES Final Result [facility] [address] [place] [phone] * Magnesium (09/07/2025 2:24 PM EDT) Magnesium 2.2 1.6 - 2.6 mg/dL [facility] 09/07/2025 2:24 PM EDT 09/07/2025 2:27 PM EDT us Generic External Data Provider LAB BLOOD ORDERAB LES Final Result Performing Organization Address City/[facility]/ZIP Co de Phone Number [facility] [address] [place] [phone] * (ABNORMAL) Comprehensive Metabolic Panel (09/07/2025 2:24 PM EDT) Pathologist [facility] Sodium 140 135 - 145 mmol/L [facility] Potassium 3.9 3.3 - 5.1 mmol/L [facility] Chloride 105 96 - 108 mmol/L [facility] Carbon Dioxide 26 22 - 29 mmol/L [facility] Anion Gap 13 12 - 20 [facility] Urea Nitrogen (BUN) 7(L) 9 - 16 mg/dL [facility] Creatinine, Serum 1.01 0.5 - 1.4 mg/dL [facility] Creatinine Clr Calc Pharmacy 106.2 [facility] Comment:eGFR (calculated fro m the MDRD study equation) and eCrCl(calculated from the Cockcroft-Gault equation) are based ondifferent parameters and may not yield comparable results.If eCrCl result is absurd, please check patient'sheight/weight. Estimated Glomerular Filt Rate >60 [facility] Comment:Chronic Kidney Disea se: Estimated GFR < 60 mL/min/1.01p6Avpnjx Kidney Disease: Estimated GFR < 15 mL/min/1.73m2 Glucose 106 60 - 115 mg/dL [facility] Calcium 9.6 8.4 - 10.2 mg/dL [facility] Bilirubin, Total 0.9 0.0 - 1.0 mg/dL [facility] Aspartate Amino Transferase 23 5 - 37 U/L [facility] Alanine Aminotransferase 29 0 - 40 U/L [facility] Total Protein 7.3 6.5 - 8.0 g/dL [facility] Albumin Level 5.1(H) 3.5 - 5.0 g/dL [facility] Alkaline Phosphatase 117 39 - 117 U/L [facility] 09/07/2025 2:24 PM EDT 09/07/2025 2:27 PM EDT Generic External Data Provider LAB BLOOD ORDERAB LES Final Result Performing Organization Address [facility] de Phone Number [facility] [address] [place] [phone] * Prothrombin Time-INR (09/07/2025 2:24 PM EDT) Prothrombin Time 10.9 10.9 - 12.4 SEC [facility] INTERNATIONAL NORM RATIO 1.0 0.9 - 1.1 [facility] Comment:INTERNATIONAL NORMAL IZED RATIO (INR) REFERENCE RANGES Reference RangeFor patients not on anticoagulant therapy: 0.9 - 1.1INR ranges for oral anticoagulanttherapy:For prevention and treatment of venous thrombosis and pulmonary embolism: 2.0 - 3.0For acute myocardial infarction with aspirin therapy: 2.0 - 3.0For acute myocardial infarction without aspirin therapy: 3.0 - 4.0For patients with mechanical prosthetic heart valves: 2.5 - 3.5 09/07/2025 2:24 PM EDT 09/07/2025 2:27 PM EDT Contract Live External Data Provider LAB BLOOD ORDERAB LES Final Result Performing Organization Address [facility] Phone Number [facility] [address] [place] [phone] * (ABNORMAL) CBC auto differential (09/07/2025 2:24 PM EDT) White Blood Count 7.5 4.8 - 10.8 X10*3/uL [facility] Red Blood Count 5.81(H) 4.60 - 5.80 X10*6/uL [facility] Hemoglobin 15.3 14.0 - 18.0 g/dl [facility] Hematocrit 46.8 42.0 - 52.0 % [facility] Mean Corpuscular Volume 80.6 80.0 - 98.0 fL [facility] Mean Corpuscular Hemoglobin 26.3(L) 27.0 - 33.0 pg [facility] Mean Corpuscular HGB Conc 32.7 31.0 - 36.0 g/dl [facility] Red Cell Distribution Width 13.5 11.0 - 16.0 % [facility] Platelet Count 305 160 - 400 X10*3/uL [facility] Mean Platelet Volume 9.7 9.4 - 12.4 fL [facility] Neutrophils Percent Auto 74.2(H) 45 - 73 % [facility] Imm Gran Pct Auto 0.1 0.0 - 0.4 % [facility] Lymphocytes Percent Auto 19.1(L) 20 - 40 % [facility] Monocytes Percent Auto 5.5 2 - 11 % [facility] Eosinophils Percent Auto 0.7 0 - 4 % [facility] Basophils Percent Auto 0.4 0 - 2 % [facility] NRBC Pct Auto 0.0 0.0 - 0.2 /100WBC [facility] Neutrophils Absolute Auto 5.6 2.0 - 8.3 x10*3/uL [facility] Imm Gran Abs Auto 0.01 0.00 - 0.03 X10*3/uL [facility] Lymphocytes Absolute Auto 1.4 1.2 - 4.9 X10*3/uL [facility] Monocytes Absolute Auto 0.4 0.1 - 1.2 X10*3/uL [facility] Eosinophils Absolute Auto 0.1 0.0 - 0.4 X10*3/uL [facility] Basophils Absolute Auto 0.0 0.0 - 0.2 X10*3/uL [facility] NRBC Abs Auto 0.000 0.0 - 0.012 X10*3/uL [facility] 09/07/2025 2:24 PM EDT 09/07/2025 2:27 PM EDT us Generic External Data Provider LAB BLOOD ORDERAB LES Final Result [facility] [address] [place] [phone] * COVID-19 ID NOW (BONE) (09/07/2025 2:21 PM EDT) IDNOW SERIAL# [id number] [facility] COVID-19 TEST Negative Negative [facility] COVID-19 NOTE See Note [facility] Comment: Results are for the identification of SARS-CoV2 RNA. TheSARS-CoV2 RNA is generally detectable in respiratory samplesduring the acute phase of infection. Positive results areindicative of the presence of SARS-CoV-2 RNA; clinicalcorrelation with patient history and other diagnosticinformation is necessary to determine patient infectionstatus. Positive results do not rule out bacterial infectionor co- infection with other viruses.Testing facilities within the [facility] and [facility] are required to report all positive results tothe appropriate public health authorities.Negative results should be treated as presumptive and, ifinconsistent with clinical signs and symptoms or necessaryfor patient management, should be tested with differentauthorized or cleared molecular tests. Negative results donot preclude SARS-CoV2 RNA infection and should not be usedas the sole basis for patient management decisions. Negativeresults should be considered in the context of a patient'srecent exposures, history and the presence of clinical signsand symptoms consistent with COVID-19.This test has been authorized by the FDA under an EmergencyUse Authorization (EUA) for use by authorized laboratories.Testing performed on the Bone ID NOW utilizing NAAT. 09/07/2025 2:21 PM EDT 09/07/2025 2:27 PM EDT us Generic External Data Provider LAB MOLECULAR YUMI GNOSTICS ORDERABLES Final Result Performing Organization Address [facility] Co de Phone Number [facility] [address] [place] [phone] * Influenza A B2 ID NOW (Bone) (09/07/2025 2:21 PM EDT) IDDAGMARW SERIAL# [id number] [facility] Influenza A Negative Negative [facility] Influenza B2 Negative Negative [facility] Influenza A B2 Note See Note [facility] Comment:The Bone ID NOW In fluenza A B2 test is used for thequalitative detection of influenza A and B from patientswith signs and symptoms of respiratory infection.Negative results do not preclude influenza virus infectionand should not be used as the sole basis for diagnosis,treatment or other patient management decisions.There is a risk of false negative results due to thepresence of variants in the viral targets of the assay, lowlevels of virus in the specimen and co- infection withRespiratory Syncytial Virus. 09/07/2025 2:21 PM EDT 09/07/2025 2:27 PM EDT Generic External Data Provider LAB MICROBIOLOGY - GENERAL ORDERABLES Final Result Performing Organization Address [facility] Co de Phone Number [facility] [address] [place] [phone] documented in this encounter Visit Diagnoses Not on filedocumented in this encounter Additional Health Concerns Assessment Noted Time PHQ-9 Depression Total Score: 9 03/17/20 25 4:04 PM EDT documented as of this encounter Care Teams Money Position Officer Relationship Specialty Start Date End Date Whitney Hancock MD [address] [place] [phone] PCP - General Family Medicine 08/29/23 documented as of this encounter
--- OUTSIDE RECORDS SUMMARY | 2025-09-07 18:52 | XMS_ITS | Clinical Summary ---
Author Organization [employer] Address [address] [place] [address] Care Team Providers Care Warrant Clerk Name Role Phone Whitney Hancock MD Primary Care Provider [phone] Allergies No known active allergies Medications * This document contains information received from the source organization and may not represent a complete record from that organization. ibuprofen 800 MG tabletIndicatio ns:Trigeminal neuralgia Take 1 tablet (800 mg) by mouth every 8 (eight) hours if needed for mild pain or moderate pain. 90 tablet 3 5 Active lamoTRIgine (LaMICtal) 100 MG tabletIndicatio ns:Trigeminal neuralgia Take 1 tablet (100 mg) by mouth 2 times daily. 180 tablet 3 5 Active lamoTRIgine (LaMICtal) 200 MG tabletIndicatio ns:Trigeminal neuralgia Take 1 tablet (200 mg) by mouth 3 times daily. 270 tablet 3 5 Active omeprazole OTC (PriLOSEC OTC) 20 MG EC tabletIndicatio ns:Gastroesopha geal reflux disease without esophagitis Take 1 tablet (20 mg) by mouth before breakfast. Do not crush, chew, or split. 90 tablet 3 5 03/19/20 26 Active oxyCODONE (Oxy-IR) 5 MG immediate release capsule Take by mouth. 08/29/20 25 Discontinue d(Therapy completed) oxyCODONE (Roxicodone) 5 MG immediate release tabletIndicatio ns:Trigeminal neuralgia Take 1 tablet (5 mg) by mouth every 12 (twelve) hours if needed for severe pain for up to 7 days. 14 tablet 5 09/05/20 25 Active Problems Problem Noted Date Diagnosed [...] if dental infection, appt 05/31/23 at [facility] Unable to eat d/t sensitivity of left side of mouth, tenderness r/t TN? Will Rx Boost drinks Contacted ENT and scheduled appt Jul 2023 and added to cancellation list Will treat sinusitis from last year d/t continued sx and never receiving any treatment. F/u 1-2 months with new PCP Resolved Problems Problem Noted Date Diagnosed Date Resolved Date Severe depression (CMS/HCC) 03/17/2025 03/21/2025 Influenza A 12/17/2024 03/17/2025 Assessment & Plan (12/17/2024 3:23 PM EST): -girlfriend rapid influenza A positive -prescribed Tamiflu -droplet precautions discussed -supportive care discussed Encounters * This document contains information received from the source organization and may not represent a complete record from that organization. Date Type Department Care Team Description 09/07/2025 Orders Only GENERIC EXTERNAL DATA DEPARTMENT Provider, Generic External Data 08/27/2025 Refill [facility] [address] [place] [address] Whitney Hancock MD Trigeminal neuralgia (Primary Dx) 08/27/2025 Refill [facility] [address] [place] [address] Whitney Hancock MD Trigeminal neuralgia (Primary Dx) 08/17/2025 Refill [facility] [address] [place] [address] Whitney Hancock MD Trigeminal neuralgia 08/06/2025 Orders Only [facility] External Provider, [facility] 07/14/2025 Refill [facility] [address] [place], [place] [phone] Whitney Hancock MD Trigeminal neuralgia (Primary Dx) from Last 3 Months Immunizations Immunization Administration [...] 12/17/2024 3:30 PM EST Plan of Treatment Upcoming Encounters Date Type Department Care Team (Late st Contact Info) Description 11/04/2025 11:30 AM EST Office Visit [facility] [address] [place] [address] Whitney Hancock MD [address] [place] [address] Health Maintenance Due Date Last Done Comments CT Colonography 1979 Colonoscopy 1979 Colorectal Cancer Screening 1979 FIT DNA/Cologuard 1979 FIT 1979 FOBT 1979 SDOH Screening 1979 Sigmoidoscopy 1979 Disability Screening 1979 Alcohol/Substance Use Screening 1991 Family Planning (PISQ) 1994 Hepatitis B Vaccines (1 of 3 - 19+ 3-dose series) 1998 COVID-19 Vaccine (2024-2 6 season) 2025 04/05/2021, 03/11/2021 Influenza Vaccine [...] TROPONIN I Routine 09/07/2025 2:24 PM EDT MAGNESIUM Routine 09/07/2025 2:24 PM EDT COMPREHENSIVE METABOLIC PANEL Routine 09/07/2025 2:24 PM EDT PROTHROMBIN TIME-INR Routine 09/07/2025 2:24 PM EDT CBC WITH AUTO DIFFERENTIAL Routine 09/07/2025 2:24 PM EDT COVID-19 ID NOW (BONE) Routine 09/07/2025 2:21 PM EDT INFLUENZA A B2 ID NOW (BONE) Routine 09/07/2025 2:[address] ABDOMEN PELVIS WO CONTRAST Routine 08/06/2025 [...] Recently Relevant to Health Maintenance Results * XR Chest 2 Views (09/07/2025 3:12 PM EDT) Anatomical Region Laterality Modality Chest Radiographic Enriqueta ging 09/07/2025 3:12 PM EDT Narrative 09/07/2025 3:13 PM EDT [place] [address] XRay Report Signed Patient: Haris Laurent MR#: [id number] : 1980 Acct:[id number] Age/Sex: 45 / M ADM Date: 09/07/25 Loc: HO.ED Attending Dr: Ordering Physician: Mandi Ventura NP Date of Service: 09/07/25 Procedure(s): XR chest 2V Accession Number(s): [id number] cc: [facility]; Mandi Ventura NP Reason for Exam: chest [...] in OV> 09/07/251512 DD/ 11 TD/TT: 09/07/251511 Psychiatric Registered Nurse: Procedure Note Donotpatricinterpreter, Image - 09/07/[address] [address] XRay Report Signed Patient: Haris LaurentMR#: [id number] : 1980Acct:[id number] Age/Sex: 45 / MADM Date: 09/07/25 Loc: .ED Attending Dr: Ordering Physician: Mandi Ventura NP Date of Service: 09/07/25 Procedure(s): XR chest 2V Accession Number(s): [id number] cc: [facility]; Mandi Ventura NP Reason for Exam: chest [...] in OV> 09/07/251512 DD/ 11 TD/TT: 09/07/251511 Psychiatric Registered Nurse: us [facility] External Provider IMG XR PROCEDURES Final Result * CT Head w/o Contrast (09/07/2025 3:09 PM EDT) Anatomical Region Laterality Modality Head, Neck Computed Tomogra phy 09/07/2025 3:09 PM EDT Narrative 09/07/2025 3:10 PM EDT [address] [address] [address] Scan Report Signed Patient: Haris Laurent MR#: [id number] : 1980 Acct:[id number] Age/Sex: 45 / M ADM Date: 09/07/25 Loc: HO.ED Attending Dr: Ordering Physician: Mandi Ventura NP Date of Service: 09/07/25 Procedure(s): CT head/brain wo IV con Accession Number(s): [id number] cc: [facility]; Mandi Ventura NP Report Number: [id number]: Total DLP = 773.00 mGy-cm Reason for [...] 09/07/25 1510 DD/ 1509 TD/TT: 09/07/25 1509 Psychiatric Registered Nurse: Procedure Note Donotuseinterpreter, Image - 09/07/[address] [address] [address] Scan Report Signed Patient: Haris LaurentMR#: [id number] : 1980Acct:[id number] Age/Sex: 45 / MADM Date: 09/07/25 Loc: HO.ED Attending Dr: Ordering Physician: Mandi Ventura NP Date of Service: 09/07/25 Procedure(s): CT head/brain wo IV con Accession Number(s): [id number] cc: [facility]; Mandi Ventura COLBY Report Number: [id number]: Total DLP = 773.00 mGy-cm Reason for [...] 09/07/25 1510 DD/ 1509 TD/TT: 09/07/25 1509 Psychiatric Registered Nurse: [facility] External Provider IMG CT PROCEDURES Final Result * High Sensitivity Troponin I (09/07/2025 2:24 PM EDT) TROPONIN I HIGH SENSITIVITY <2.7 <3.5 - 35.0 ng/L [facility] Comment:The Bone high sens itivity Troponin-I results should beused in conjunction with other diagnostic information suchas ECG, clinical observations and information, and patientsymptoms to aid in the diagnosis of NH. 09/07/2025 2:24 PM EDT 09/07/2025 2:27 PM EDT Generic External Data Provider LAB BLOOD ORDERAB LES Final Result [facility] [address] [place] [phone] * (ABNORMAL) CBC auto differential (09/07/2025 2:24 PM EDT) Only the most recent of2 resultswithin the time period is included. White Blood Count 7.5 4.8 - 10.8 X10*3/uL [facility] Red Blood Count 5.81(H) 4.60 - 5.80 X10*6/uL [facility] Hemoglobin 15.3 14.0 - 18.0 g/dl [facility] Hematocrit 46.8 42.0 - 52.0 % [facility] Mean Corpuscular Volume 80.6 80.0 - 98.0 fL [facility] Mean Corpuscular Hemoglobin 26.3(L) 27.0 - 33.0 pg [facility] Mean Corpuscular HGB Conc 32.7 31.0 - 36.0 g/dl [facility] Red Cell Distribution Width 13.5 11.0 - 16.0 % [facility] Platelet Count 305 160 - 400 X10*3/uL [facility] Mean Platelet Volume 9.7 9.4 - 12.4 fL [facility] Neutrophils Percent Auto 74.2(H) 45 - 73 % [facility] Imm Gran Pct Auto 0.1 0.0 - 0.4 % [facility] Lymphocytes Percent Auto 19.1(L) 20 - 40 % [facility] Monocytes Percent Auto 5.5 2 - 11 % [facility] Eosinophils Percent Auto 0.7 0 - 4 % [facility] Basophils Percent Auto 0.4 0 - 2 % [facility] NRBC Pct Auto 0.0 0.0 - 0.2 /100WBC [facility] Neutrophils Absolute Auto 5.6 2.0 - 8.3 x10*3/uL [facility] Imm Gran Abs Auto 0.01 0.00 - 0.03 X10*3/uL [facility] Lymphocytes Absolute Auto 1.4 1.2 - 4.9 X10*3/uL [facility] Monocytes Absolute Auto 0.4 0.1 - 1.2 X10*3/uL [facility] Eosinophils Absolute Auto 0.1 0.0 - 0.4 X10*3/uL [facility] Basophils Absolute Auto 0.0 0.0 - 0.2 X10*3/uL [facility] NRBC Abs Auto 0.000 0.0 - 0.012 X10*3/uL [facility] 09/07/2025 2:24 PM EDT 09/07/2025 2:27 PM EDT Generic External Data Provider LAB BLOOD ORDERAB LES Final Result Performing Organization Address [facility] de Phone Number [facility] [address] [place] [phone] * Prothrombin Time-INR (09/07/2025 2:24 PM EDT) Prothrombin Time 10.9 10.9 - 12.4 SEC [facility] INTERNATIONAL NORM RATIO 1.0 0.9 - 1.1 [facility] Comment:INTERNATIONAL NORMAL IZED RATIO (INR) REFERENCE [...] 2:24 PM EDT 09/07/2025 2:27 PM EDT [facility] External Data Provider LAB BLOOD ORDERAB LES Final Result Performing Organization Address [facility] de Phone Number [facility] [address] [place] [phone] * Magnesium (09/07/2025 2:24 PM EDT) Magnesium 2.2 1.6 - 2.6 mg/dL [facility] 09/07/2025 2:24 PM EDT 09/07/2025 2:27 PM EDT us Generic External Data Provider LAB BLOOD ORDERAB LES Final Result [facility] [address] [place] [phone] * (ABNORMAL) Comprehensive Metabolic Panel (09/07/2025 2:24 PM EDT) Only the most recent of2 resultswithin the time period is included. Sodium 140 135 - 145 mmol/L [facility] Potassium 3.9 3.3 - 5.1 mmol/L [facility] Chloride 105 96 - 108 mmol/L [facility] Carbon Dioxide 26 22 - 29 mmol/L [facility] Anion Gap 13 12 - 20 [facility] Urea Nitrogen (BUN) 7(L) 9 - 16 mg/dL [facility] Creatinine, Serum 1.01 0.5 - 1.4 mg/dL [facility] Creatinine Clr Calc Pharmacy 106.2 [facility] Comment:eGFR (calculated fro m the MDRD study equation) and eCrCl(calculated from the Cockcroft-Gault equation) are based ondifferent parameters and may not yield comparable results.If eCrCl result is absurd, please check patient'sheight/weight. Estimated Glomerular Filt Rate >60 [facility] Comment:Chronic Kidney Disea se: Estimated GFR < 60 mL/min/1.83g0Hqkvnm Kidney Disease: Estimated GFR < 15 mL/min/1.73m2 Glucose 106 60 - 115 mg/dL [facility] Calcium 9.6 8.4 - 10.2 mg/dL [facility] Bilirubin, Total 0.9 0.0 - 1.0 mg/dL [facility] Aspartate Amino Transferase 23 5 - 37 U/L [facility] Alanine Aminotransferase 29 0 - 40 U/L [facility] Total Protein 7.3 6.5 - 8.0 g/dL [facility] Albumin Level 5.1(H) 3.5 - 5.0 g/dL [facility] Alkaline Phosphatase 117 39 - 117 U/L [facility] 09/07/2025 2:24 PM EDT 09/07/2025 2:27 PM EDT Generic External Data Provider LAB BLOOD ORDERAB LES Final Result Performing Organization Address [facility]/ZIP Co de Phone Number [facility] [address] [place] [phone] * Influenza A B2 ID NOW (Bone) (09/07/2025 2:21 PM EDT) IDNOW SERIAL# [id number] [facility] Influenza A Negative Negative [facility] Influenza B2 Negative Negative [facility] Influenza A B2 Note See Note [facility] Comment:The Bone ID NOW In fluenza [...] EDT us Generic External Data Provider LAB MICROBIOLOGY - GENERAL ORDERABLES Final Result Performing Organization Address [facility]/ZIP Co de Phone Number [facility] [address] [place] [phone] * COVID-19 ID NOW (BONE) (09/07/2025 2:21 PM EDT) IDNOW SERIAL# [id number] [facility] COVID-19 TEST Negative Negative [facility] COVID-19 NOTE See Note [facility] Comment: Results are for the identification of SARS-CoV2 RNA. TheSARS-CoV2 RNA is generally detectable in respiratory samplesduring the acute phase of infection. Positive results areindicative of the presence of SARS-CoV-2 RNA; clinicalcorrelation with patient history and other diagnosticinformation is necessary to determine patient infectionstatus. Positive results do not rule out bacterial infectionor co- infection with other viruses.Testing facilities within the [place] and itsterritories are required to report all positive results [...] use by authorized laboratories.Testing performed on the [place] ID NOW utilizing NAAT. 09/07/2025 2:21 PM EDT 09/07/2025 2:27 PM EDT us Generic External Data Provider LAB MOLECULAR YUMI GNOSTICS ORDERABLES Final Result [facility] [address] [place] [phone] * CT Abdomen Pelvis w/o Contrast (08/06/2025 4:16 PM EDT) Anatomical Region Laterality Modality Body, Pelvis, Abdomen Computed T omography 08/06/2025 4:16 PM EDT Narrative 08/06/2025 4:50 PM EDT [address] [address] [address] Scan Report Signed Patient: Haris Laurent MR#: [id number] : 1980 Acct:[id number] Age/Sex: 45 / M ADM Date: 08/06/25 Loc: HO.ED Attending Dr: Ordering Physician: Bertram Hsieh DO Date of Service: 08/06/25 Procedure(s): CT abdomen pelvis wo IV con Accession Number(s): [id number] cc: [facility]; Bertram Hsieh DO Report Number: [id number]: Total DLP = 544.00 mGy-cm Reason for [...] 08/06/25 1647 DD/ 1616 TD/TT: 08/06/25 1629 Psychiatric Registered Nurse: Procedure Note Donotgregg, Image - 08/06/[address] [place] [address] [address] Scan Report Signed Patient: Emily Laurent#: [id number] : 1980Acct:[id number] Age/Sex: 45 / MADM Date: 08/06/25 Loc: .ED Attending Dr: Ordering Physician: Bertram Hsieh DO Date of Service: 08/06/25 Procedure(s): CT abdomen pelvis wo IV con Accession Number(s): [id number] cc: [facility]; Bertram Hsieh DO Report Number: [id number]: Total DLP = 544.00 mGy-cm Reason for [...] 08/06/25 1647 DD/ 1616 TD/TT: 08/06/25 1629 Psychiatric Registered Nurse: us [facility] External Provider IMG CT PROCEDURES Edited Result - Final * (ABNORMAL) Urinalysis, Complete, with Reflex to Culture (08/06/2025 2:28 PM EDT) Color Urine Yellow [facility] Appearance Urine Clear [facility] PH 5.5 5.0 - 9.0 [facility] Glucose Urine UA Negative Negative mg/dL [facility] Urine Blood Small (1+)(A) Negative [facility] Specific [place] - Urine 1.025 1.005 - 1.025 [facility] Urine Protein Trace Neg-Trace mg/dL [facility] Urine Ketones Trace Negative mg/dL [facility] Nitrite Urine Negative Negative [facility] Leukocyte Esterase Urine Negative Negative [facility] RBC Urine 6-10(A) 0 - 2 /HPF [facility] Urine WBC 0-5 0 - 5 /HPF [facility] Urine Squamous Epithelial Cell 0-2 0 - 2 /HPF [facility] Urine Bacteria None Seen None Seen [facility] Hyaline Casts, Urine 0-2 0 - 2 /LPF [facility] 08/06/2025 2:28 PM EDT 08/06/2025 2:31 PM EDT Narrative [facility] - 08/06/2025 2:41 PM EDT [id number], Clean Catch us Generic External Data Provider LAB URINE ORDERAB LES Final Result Performing Organization Address City/State/[facility] Co de Phone Number [facility] [address] [place] [phone] * XR Lumbar Spine 2-3 Views (08/06/2025 2:06 PM EDT) Anatomical Region Laterality Modality Spine, L-spine Radiographic Enriqueta ging 08/06/2025 2:06 PM EDT Narrative 08/06/2025 2:12 PM EDT [address] [address] XRay Report Signed Patient: Haris Laurent MR#: [id number] : 1980 Acct:[id number] Age/Sex: 45 / M ADM Date: 08/06/25 Loc: HO.ED Attending Dr: Ordering Physician: Jesus Yu Date of Service: 08/06/25 Procedure(s): XR lumbar spine 2-3V Accession Number(s): [id number] cc: Jesus Yu; [facility] Reason for Exam: back pain EXAMINATION: XR [...] 08/06/25 1409 DD/ 1406 TD/TT: 08/06/25 1406 Psychiatric Registered Nurse: Procedure Note Donotuseinterpreter, Image - 08/06/[address] [address] XRay Report Signed Patient: Haris LaurentMR#: [id number] : 1980Acct:[id number] Age/Sex: 45 / MADM Date: 08/06/25 Loc: HO.ED Attending Dr: Ordering Physician: Jesus Yu Date of Service: 08/06/25 Procedure(s): XR lumbar spine 2-3V Accession Number(s): [id number] cc: Jesus Yu; [facility] Reason for Exam: back pain EXAMINATION: XR [...] OV> 08/06/25 1409 DD/ 1406 TD/TT: 08/06/25 140 Psychiatric Registered Nurse: [facility] External Provider IMG XR PROCEDURES Edited Result [...] a test for HCV RNA (test code 85984) is suggested. For additional information please refer to http://education.ZQGame/faq/YLH83z9 (This link is being provided for informational/ educational purposes only.) 02/02/2022 11:2 3 AM EDT Lisette Perez NP HISTORICAL/NON ORDERABLE LABS F inal Result [facility] [address] * HIV 1/2 ANTIGEN/ANTIBODY,FOURTH GENERATION W/RFL [...] purpose. For additional information please refer to http://Uversity.ZQGame/faq/WMC315 (This link is being provided for informational/ educational purposes only.) The performance of this assay has not been clinically validated in patients less than 2 years old. 02/02/2022 11:2 3 AM EDT Lisette Perez NP LAB BLOOD ORDERABLES Final Resu lt Performing Organization Address [facility] Phone Number [facility] [address] * (ABNORMAL) LIPID PANEL, STANDARD (02/02/2022 [...] factors. LDL-C is now calculated using the Frank-Mckenna calculation, which is a validated novel method providing better accuracy than the Friedewald equation in the estimation of LDL-C. Frank SS et al. OSNY. 2013;310(19): 8851-4962 (http://education.Storee.50 Cubes/faq/WLQ160) Non-HDL Cholesterol 128 <130 mg/dL (calc) [facility] Comment: For patients with diabetes plus 1 major ASCVD risk factor, treating to a non-HDL-C goal of <100 mg/dL (LDL-C of <70 mg/dL) is considered a therapeutic option. Triglycerides 172(H) <150 mg/dL [facility] 02/02/2022 11:2 3 AM EDT us Lisette Perez NP LAB BLOOD ORDERABLES Final Resu lt [facility] [address] from Last 3 Months or Most Recently Relevant to Health Maintenance Insurance [facility] C3 HSN FULL Care Teams Warrant Clerk Relationship Specialty Start Date End Date Whitney Hancock MD [address] [place] [phone] PCP - General Family Medicine 08/29/23
--- OUTSIDE RECORDS SUMMARY | 2025-09-07 18:52 | XMS_ITS | Encounter Summary ---
Author Organization [employer] Address [address] [facility] [address] [place] [address] Care Team Providers Care Double End Chucking Machine Operator Name Role Phone Whitney Hancock MD Primary Care Provider [phone] Reason for Visit * Reason Onset Date Comments Nurse Triage 08/27/2025 Encounter Details Date Type Department Care Team (Late st Contact Info) Description 08/27/2025 Refill [facility] [address] [place], [place] [phone] Whitney Hancock MD [address] [place], [place] [phone] Trigeminal neuralgia (Primary Dx) Social History Tobacco Use Types Packs/Day Years [...] encounter Miscellaneous Notes * Telephone Encounter - Phyllis Ortiz RN - 08/27/2025 4:36 PM EDT Call returned to pt. Pt's girlfriend Rabia answered. No consent in chart to speak to pt's girlfriend. Verbal consent obtained from pt to speak to girlfriend. Rabia reports that pt is having a flare of again of Trigeminal Neuralgia. Pt c/o 9/10 facial pain. States that when pt has flares, pcp usually prescribes a short course of Oxycodone which controls it. Advised of recommendation to present to [facility] for evaluation. Pt asking if pcp can send the prescription to [facility] in [place]. Advised RN will check [facility] and request prescription from pcp. Per review of [facility] today, last refill of Oxycodone 5 mg was picked up 07/14/25 Qty 14 for a 7 day supply. Refill pended to pcp for review. Protocol Used: Face Pain (Adult) Protocol-Based Disposition: Go to Office or Video Visit Now Positive Triage Question: * Severe pain (e.g., excruciating, unable to do any normal activities) * All higher-acuity triage questions were negative * Telephone Encounter - Aleta Agee - 08/27/2025 4:11 PM EDT Symptom: Face Pain - Not From Injury Outcome: Schedule an appointment to be seen within 24 hours Reason: Caller denied all higher acuity questions The caller accepted this outcome. Contact pt at [phone] documented in this encounter Plan of Treatment Upcoming Encounters Date Type Department Care Team ([facility] st Contact Info) Description 11/04/2025 11:30 AM EST Office Visit [facility] [address] [place] [address] Whitney Hancock MD [address] [place] [address] documented as of this encounter Visit Diagnoses Diagnosis Trigeminal neuralgia- Primary documented in this encounter Additional Health Concerns Assessment Noted Time PHQ-9 Depression Total Score: 9 03/17/20 25 4:04 PM EDT documented as of this encounter Care Teams Double End Chucking Machine Operator Relationship Specialty Start Date End Date Whitney Hancock MD [address] [place] [address] PCP - General Family Medicine 08/29/23 documented as of this encounter
--- OUTSIDE RECORDS SUMMARY | 2025-09-07 18:52 | XMS_ITS | Encounter Summary ---
Author Organization [email or web address] Address [address] [facility] [address] [place] [address] Care Team Providers Care Copyright Expert Name Role Phone Whtiney Hancock MD Primary Care Provider [phone] Reason for Visit * Reason Comments Med Refill Encounter Details Date Type Department Care Team (Late st Contact Info) Description 08/17/2025 Refill [facility] [address] [place] [address] [phone] Whitney Hancock MD [address] [place] [address] [phone] Trigeminal neuralgia Social History Tobacco Use Types Packs/Day Years [...] Description 11/04/2025 11:30 AM EST Office Visit [facility] [address] [place] [address] [phone] Whitney Hancock MD [address] [place] [address] [phone] documented as of this encounter Visit Diagnoses Diagnosis Trigeminal neuralgia documented in this encounter Additional Health Concerns Assessment Noted Time PHQ-9 Depression Total Score: 9 03/17/20 25 4:04 PM EDT documented as of this encounter Care Teams Copyright Expert Relationship Specialty Start Date End Date Whitney Hancock MD [address] [place] [address] PCP - General Family Medicine 08/29/23 documented as of this encounter
--- OUTSIDE RECORDS SUMMARY | 2025-09-07 18:52 | XMS_ITS | Encounter Summary ---
Author Organization [employer] Address [address] [facility] [address] [place] [address] Care Team Providers Care Director Presales Name Role Phone Suzy ZhengP Primary Care Provider Whitney Green MD Primary Care Provider [phone] Reason for Visit * Reason Onset Date Comments Durable Medical Equipment 01/26/2023 Encounter Details Date Type Department Care Team (Late st Contact Info) Description 01/26/2023 Telephone [facility] [address] [place] [address] Suzy Zheng, EXPENSE CLERK Durable Medical Equipment Social History Tobacco Use [...] contact and schedule a day and time. [facility] understood and agreed with plan. * Telephone Encounter - Raza Frazier - 01/26/2023 10:52 AM EST Tc from [facility] requesting a new script for a CPAP machine. [facility] states current CPAP machine is currently broken. Please contact [facility] at [phone] documented in this encounter Plan of Treatment Upcoming Encounters Date Type Department Care Team (Late st Contact Info) Description 11/04/2025 11:30 AM EST Office Visit [facility] [address] [place], [place] [phone] Whitney Hancock MD [address] [place], [place] [phone] documented as of this encounter Visit Diagnoses Not on filedocumented in this encounter Care Teams Director Presales Relationship Specialty Start Date End Date Suzy Zheng FNP PCP - General Family Medicine 05/25/22 08/28/23 Whitney Hancock MD [address] [place] [address] [phone] PCP - General Family Medicine 08/29/23 documented as of this encounter
== END 2025-09-07 18:48 | disposition left against medical advice (07) ==
LOC: HO.ED 18:48
PROVIDERS: Registered Nurse Emergency; Emergency Provider Emergency Medicine
DX: R07.9 Chest pain, unspecified (principal); R42 Dizziness and giddiness; Z03.818 Encounter for observation for suspected exposure to other biological agents ruled out
CPT/HCPCS: 36415; 70450; 71046; 80053; 83735; 84484; 85025; 85610; 87502; 87635; 93005; 99283; 99284

== ENCOUNTER → 2025-09-07 13:17 | Outpatient (BNV) | payer MEDICAID, SELFPAY | PROVIDERS: Emergency Provider Emergency Medicine; Visit Provider Internal Medicine Cardiovascular Disease | DX: R07.9 Chest pain, unspecified (principal) | CPT/HCPCS: 93010 ==

== ENCOUNTER → 2025-09-07 13:37 | Outpatient (BNV) | payer MEDICAID, SELFPAY | PROVIDERS: Visit Provider Radiology Diagnostic Radiology | DX: R42 Dizziness and giddiness (principal); R07.9 Chest pain, unspecified | CPT/HCPCS: 70450; 71046 ==